=== PATIENT | male | born 1950 | race Caucasian/White ===

== ENCOUNTER → 2019-12-26 14:07 | Outpatient (BNVA) | payer OTHER, SELFPAY | PROVIDERS: Family Provider Family Medicine; Visit Provider Orthopaedic Surgery | DX: M25.552 Pain in left hip (principal) | CPT/HCPCS: 73502 ==

== ENCOUNTER → 2020-09-20 14:59 | Outpatient (BNVA) | payer OTHER, SELFPAY | PROVIDERS: Family Provider Family Medicine; Visit Provider Nurse Practitioner | DX: Z20.828 Contact with and (suspected) exposure to other viral communicable diseases (principal) | CPT/HCPCS: 87635 ==

== ENCOUNTER 2024-09-19 13:55 | Oncology outpatient (recurring) (ONCR) | payer MEDICARE, SELFPAY ==
[2024-09-19 15:31] LABS: Basophils % 0.2 %; Eosinophils % 0.8 %; Hematocrit 27.7 % (37-53); Lymphocytes # 3.3 10^3/uL (0.8-4.8); Lymphocytes % 65.2 %; Mean Corpuscular HGB Conc 32.1 g/dL (30-55); Mean Corpuscular Hemoglobin 35.2 pg (27-33); Mean Corpuscular Volume 109.5 fl (82-101); Monocytes # 0.1 10^3/uL (0.2-0.9); Monocytes % 1.4 %; Neutrophils # 1.63 10^3/uL (1.8-7.7); Neutrophils % 32.2 %; Nucleated Red Blood Cells % 0.4 %; Platelet Count 277 10^3/cmm (157-399); Red Blood Count 2.53 10^6/uL (3.85-5.65); Red Cell Distribution Width 16.7 % (12.1-15.1); White Blood Count 5.06 10^3/uL (3.29-11.43)
[2024-09-19 15:53] LABS: Alanine Aminotransferase 10 U/L (0-41); Albumin Level 4.2 g/dL (3.5-5.2); Alkaline Phosphatase 62 U/L (40-130); Anion Gap 10.6 (5-19); Aspartate Amino Transferase 14 U/L (0-40); Blood Urea Nitrogen 22 mg/dL (8-23); Carbon Dioxide 27 mmol/L (22-29); Chloride 98 mmol/L (98-107); Creatinine Clr Calc Pharmacy 68.9607; Globulin 7.6 g/dL (1.3-4.6); Glucose 116 mg/dL (65-115); Lactate Dehydrogenase 135 U/L (135-225); Osmolality Calculated 276 mOsm/kg (285-295); Potassium 4.6 mmol/L (3.5-5.1); Sodium 131 mmol/L (136-145); Total Bilirubin 0.4 mg/dL (0.15-1.2); Total Protein 11.8 g/dL (6.6-8.7)
[2024-09-19 15:54] LABS: Immunoglobulin IGA < 50 mg/dL (70-400); Immunoglobulin IGM < 25 mg/dL (40-230)
[2024-09-19 16:11] LABS: Immunoglobulin IGG 6470 mg/dL (700-1600)
[2024-09-20 08:48] LABS: PROTEIN, TOTAL 11.8 g/dL (6.1-8.1)
[2024-09-21 05:29] LABS: Creatinine, Random Urine 59 mg/dL (20-320); Protein, Total, Random <4 mg/dL (5-25); Protein/Creatinine Ratio NOTE (0.025-0.148); Protein/Creatinine Ratio NOTE mg/g creat (25-148)
[2024-09-21 13:46] LABS: ABNORMAL PROTEIN BAND 1 2.8 g/dL (NONE DETECTED); ABNORMAL PROTEIN BAND 2 2.4 g/dL (NONE DETECTED); ALBUMIN 4.6 g/dL (3.8-4.8); ALPHA 1 GLOBULIN 0.4 g/dL (0.2-0.3); ALPHA 2 GLOBULIN 0.9 g/dL (0.5-0.9); BETA 1 GLOBULIN 0.5 g/dL (0.4-0.6); BETA 2 GLOBULIN 0.3 g/dL (0.2-0.5); GAMMA GLOBULIN 5.1 g/dL (0.8-1.7)
[2024-09-21 15:54] LABS: KAPPA/LAMBDA LIGHT CHAINS FREE 0.03 (0.26-1.65)
[2024-09-22 13:10] LABS: Albumin,Urine Random 100 %; Alpha-1-Globulins Urine Random 0 %; Alpha-2-Globulins Urine Random 0 %; Beta-Globulin,Urine Random 0 %; Gamma Globulin,Urine Random 0 %
== END 2024-09-30 23:59 | disposition home or self-care (01) ==
PROVIDERS: Family Provider Family Medicine; Visit Provider Internal Medicine Medical Oncology
DX: C44.91 Basal cell carcinoma of skin, unspecified (principal); D53.9 Nutritional anemia, unspecified; D89.2 Hypergammaglobulinemia, unspecified
CPT/HCPCS: 36415; 80053; 82570; 82784; 83615; 83883; 84155; 84156; 84165; 84166; 85025; 86880; 99205

== ENCOUNTER 2024-10-19 07:14 | Outpatient (CLI) | payer MEDICARE, SELFPAY ==
--- NOTE | 2024-10-19 07:22 | USCV_ITS ---
Elfego Tolentino Age: 73 Gender: M : 1950 Exam Date: 10/19/2024 07:44 Ordering Phys: Parminder Taylor MD Technologist: PRAKASH Exam Location: [facility] [place] Indication: murmur, shortness of breath BP: 130 / 70 HR: 71 Rhythm: Sinus Technical Quality: Adequate MEASUREMENTS (Male / Female) Normal Values 2D ECHO LV Diastolic Diameter PLAX 5.0 cm 4.2 - 5.9 / 3.9 - 5.3 cm IVS Diastolic Thickness 0.8 cm 0.6 - 1.0 / 0.6 - 0.9 cm IVS Systolic Thickness 1.5 cm LVPW Diastolic Thickness 1.3 cm 0.6 - 1.0 / 0.6 - 0.9 cm LVPW Systolic Thickness 1.9 cm LVOT Diameter 2.0 cm LV Ejection Fraction 2D Teich 60.0 % LV Ejection Fraction MOD 4C 52.1 % LV Ejection Fraction MOD 2C 58.4 % LV Ejection Fraction 2C AL 59.6 % LA Diameter 3.2 cm RA Systolic Volume 4C AL 65.7 ml RA Systolic Volume 4C MOD 61.7 ml Aorta at Sinotubular Diameter 2.4 cm IVC Diameter 2.1 cm M-MODE LA Ao Ratio MM 1.1 AV Cusp Separation MM 1.6 cm DOPPLER AV Peak Velocity 188.3 cm/s LVOT Peak Velocity 106.0 cm/s AV Area Cont Eq vti 1.8 cm squared AV Area Cont Eq pk 1.8 cm squared MV Peak Velocity 113.0 cm/s MV Area PHT 3.1 cm squared Mitral E to A Ratio 0.8 TR Peak Velocity 170.0 cm/s TR Peak Gradient 11.6 mmHg TR Mean Velocity 135.0 cm/s TR Mean Gradient 8.0 mmHg TR Velocity Time Integral 47.9 cm TV Peak E Velocity 47.0 cm/s PV Peak Velocity 129.0 cm/s RV Ejection Time 0.3 s FINDINGS Left Ventricle Normal left ventricular size and systolic function, EF 55%. No regional wall motion abnormalities. Right Ventricle The right ventricle is normal in size and function. Right Atrium The right atrium is normal in size. Left Atrium The left atrium is normal in size. Mitral Valve Mild mitral annular calcification. Thickened mitral valve. Trace mitral valve regurgitation. Aortic Valve Aortic valve sclerosis. Tricuspid Valve No gross abnormalities noted Pulmonic Valve Pulmonic valve not well visualized. Pericardium Normal pericardium without effusion. Aorta Normal ascending aorta dimension. IVC Normal inferior vena cava. CONCLUSIONS Normal left ventricular size and systolic function, EF 55%. No regional wall motion abnormalities. Mild mitral annular calcification. Thickened mitral valve. Trace mitral valve regurgitation. Features of aortic valve sclerosis. There is no pericardial effusion. Technically somewhat difficult study Dr Chivo Flores MD FACC (Electronically Signed) Final Date: 19 October 2024 21:56 S
== END 2024-10-19 07:15 | disposition home or self-care (01) ==
PROVIDERS: Visit Provider Family Medicine
DX: I34.2 Nonrheumatic mitral (valve) stenosis (principal); R06.02 Shortness of breath; R53.83 Other fatigue
CPT/HCPCS: 93306

== ENCOUNTER 2024-10-30 08:56 | Oncology outpatient (recurring) (ONCR) | payer MEDICARE, SELFPAY ==
--- NOTE | 2024-10-27 09:00 | PETR_ITS ---
PROCEDURE INFORMATION: Exam: PET/CT Skull Base to Mid-thigh Exam date and time: 10/27/2024 9:58 AM Age: 74 years old Clinical indication: Condition or disease; Primary cancer: Multiple myeloma not having achieved remission; Initial oncological staging assessment LABS AND CLINICAL REPORTS: Glucose: 114 mg/dl Treatment strategy for malignancy (PET staging): Restaging (PS) TECHNIQUE: Imaging protocol: Following at least four-hour fasting and following the injection of radiopharmaceutical, low dose CT images were obtained. Then, PET images were obtained. Attenuation corrected images were constructed using the CT scan. Fused images of PET and CT were reviewed. The standardized uptake values (SUV) reported below are maximum values within a region of interest, expressed in gm/ml. Exam includes orbital meatal line to mid-thigh. Radiopharmaceutical: 11.04 mCi F-18 FDG (Fluorodeoxyglucose), IV. Injection site: left ac COMPARISON: CR XR hip LT 2-3V wo/w pel* [id number] 12/26/2019 2:13 PM FINDINGS: Brain: Visualized brain has normal physiologic uptake. Paranasal sinuses: Mild non FDG avid left maxillary sinus mucosal thickening. Salivary glands: Focal FDG uptake at left parotid gland with questionable underlying soft tissue density nodule shows SUV max 7.4 on axial image 399. Teeth: Left maxillary molar lucency with focal FDG uptake showing SUV max 7.5 on axial image 397. Pharynx: No abnormal uptake. Larynx: No abnormal uptake. Lungs, pleura and trachea: No abnormal uptake. Right lower lobe platelike atelectasis versus scarring. Right lower lobe calcified granulomata. Heart: Normal physiologic uptake. Coronary arteries: Moderate coronary artery calcification. Mediastinal space: No abnormal uptake. Liver: No abnormal uptake. Gallbladder and biliary ducts: Apparent curvilinear band of FDG uptake at the gallbladder with SUV max 4.9 at the anterior aspect on axial image 243 that appears to be located adjacent to the gallbladder fundus. No underlying CT abnormality. No calcified gallstones. No biliary ductal dilatation. Pancreas: No abnormal uptake. Spleen: Diffusely increased uptake relative to the liver with SUV main 2.9. No splenomegaly or discrete mass on CT. Calcified granulomata. Adrenal glands: No abnormal uptake. Kidneys and ureters: Normal physiologic uptake. Stomach and bowel: No abnormal uptake. Colonic diverticulosis without findings of diverticulitis. Reproductive: Enlarged prostate measures 5.1 cm in transverse dimension. No abnormal uptake. Vasculature: No abnormal uptake. Moderate systemic atherosclerotic calcification without aortic aneurysm. Lymph nodes: FDG-avid left inguinal lymph node measures 8 mm in the short axis on axial image 162 and shows SUV max 5.1. Calcified right hilar nodes in keeping with sequela of old granulomatous disease. Skeleton: Diffuse FDG uptake throughout the axial and proximal appendicular skeletal system with more focal avid FDG uptake at 2.3 x 1 cm lytic right iliac lesion showing SUV max 15.1 on axial image 206. Degenerative changes along the spine, left shoulder, bilateral sacroiliac joints, hrfu-[id number]-[id number]-right hips, and imaged bilateral knees. Reverse right shoulder arthroplasty. Posterior lower lumbar spine postsurgical change with osseous fusion across L4-L5 grade 1/2 anterolisthesis. Chronic appearing left iliac deformity. Soft tissues: No abnormal uptake in the visualized head, neck, chest, abdomen, pelvis, and extremities. Small fat containing umbilical and bilateral inguinal hernias. METRICS: Mediastinal blood pool: SUV mean 1.8 Liver uptake: SUV mean 2.1 PET/PET skull to thigh INIT [id number] IMPRESSION: 1. Avid FDG uptake at 2.3 cm right iliac lytic lesion compatible with reported multiple myeloma. Less avid diffuse FDG uptake throughout the axial and proximal appendicular skeletal system could represent hyperplasia/posttreatment change, additional sites of myelomatous involvement not excluded. 2. Diffuse splenic FDG uptake may represent splenic repopulation or granulomatous, malignancy thought less likely. 3. FDG avid left inguinal lymph node is nonspecific, may be reactive. 4. Focal left parotid gland FDG uptake with questionable underlying soft tissue density nodule may represent primary neoplasm or abnormal lymph node. 5. Apparent FDG uptake at the gallbladder without underlying CT abnormality. Suspect this represents misregistration artifact with FDG uptake truly corresponding to the colon, although difficult to be entirely certain. Consider right upper quadrant ultrasound. 6. FDG avid left maxillary molar lucency may be inflammatory dental disease. 7. Additional chronic and incidental findings as above.
== END 2024-10-31 23:59 | disposition home or self-care (01) ==
PROVIDERS: Visit Provider Internal Medicine Medical Oncology
DX: C90.00 Multiple myeloma not having achieved remission (principal); Z79.52 Long term (current) use of systemic steroids; Z79.899 Other long term (current) drug therapy; D64.9 Anemia, unspecified; Z79.891 Long term (current) use of opiate analgesic
CPT/HCPCS: 78815; 99214; A9552

== ENCOUNTER → 2024-11-04 15:27 | Outpatient (BNVA) | payer MEDICARE, SELFPAY | PROVIDERS: Visit Provider Registered Nurse Neonatal Intensive Care | DX: R05.8 Other specified cough (principal) | CPT/HCPCS: 87400; 87426 ==

== ENCOUNTER 2024-11-17 11:06 | Inpatient (IN) | payer MEDICARE, SELFPAY ==
[2024-11-17] VITALS (9 sets, daily range): BP systolic 109–188; BP diastolic 67–104; PULSE 61–107; RESP 15–18; TEMP 37.2–38.7; O2SAT 88–99; BMI 25.1
--- NOTE | 2024-11-17 13:05 | XR_ITS ---
WS: [id number] XR chest 1V portable [id number] REASON FOR EXAM: Weakness FINDINGS: No comparison examination. Moderate tortuosity and ectasia of the thoracic aorta. Heart size is within normal limits. Calcified granulomas disease in both hemithoraces. Presumed chronic reticular interstitial lung opacities in both lower lung alejandre. Vaguely defined opacity in the right midlung field associated with multiple calcifications. Irregular aeration in the upper lung alejandre compatible with emphysema and bullous lung disease. Total reverse right shoulder arthroplasty. 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 Mild scoliosis with moderate degenerative spondylosis in the thoracic spine. XR/XR chest 1V portable [id number] IMPRESSION: Probable old inflammatory change in the right lung. No comparison examination. Likely central lobar emphysema and bullous lung disease. No other pleural or pulmonary parenchymal findings that appear acute.
--- NOTE | 2024-11-17 13:06 | ECG_ITS ---
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
--- NOTE | 2024-11-17 13:07 | ED_ITS ---
HPI - Fever 2 General: Chief Complaint: Fever Stated Complaint: body pain, shingles Time Seen by Provider: 11/17/24 13:02 History of Present Illness: 74-year-old man with a history of multip le myeloma and recent diagnosis of shingles who presents emergency room with fever. Has had shingles for about a week. Strangely it is bilateral on his low back. He says he started having a fever last night. On presentation today is 101.6. He says he could not sleep at all last night. He has bodyaches. He has a cough. He does not feel more short of breath than usual. He says Tylenol does not work on his fever. Patient says he is on steroids and valacyclovir. Related Data Home Medications Medication Instructions Recorded Confirmed duloxetine 60 mg capsule,delayed 60 - 120 mg PO DAILY 09/19/24 11/17/24 release quetiapine 300 mg tablet,extended 300 mg PO BEDTIME 09/19/24 11/17/24 release 24 hr clonazepam 2 mg tablet 2 mg PO BID 10/30/24 11/17/24 sulfamethoxazole 800 See Rx Instructions .Route 11/17/24 11/17/24 mg-trimethoprim 160 mg tablet .COMPLEX infection prevention (Bactrim DS) Previous Rx's Medication Instructions Recorded aspirin 81 mg tablet,delayed 81 mg PO DAILY #30 tabs 10/30/24 release (Adult Aspirin Regimen) dexamethasone 4 mg tablet 40 mg (10 x 4 mg) PO .weekly #40 10/30/24 tabs fluconazole 100 mg tablet 100 mg PO DAILY fungal infection 11/06/24 prevention #90 tabs lenalidomide 25 mg capsule 25 mg PO DAILY 21 days #21 caps 11/06/24 lorazepam 1 mg tablet 0.5 - 1 mg (0.5 - 1 x 1 mg) PO Q6H 11/06/24 PRN severe nausea #30 tabs ondansetron HCl 4 mg tablet 4 mg PO Q6H PRN nausea and 11/06/24 vomiting #30 tabs prochlorperazine maleate 10 mg 10 mg PO Q4H PRN mild nausea #30 11/06/24 tablet (Compazine) tabs valacyclovir 500 mg tablet 500 mg PO BID #60 tabs 11/06/24 acyclovir 800 mg tablet 800 mg PO .5x daily 7 days #35 tabs 11/13/24 oxycodone-acetaminophen 5 mg-325 1 tab PO Q6H PRN pain 30 days #60 11/13/24 mg tablet (Percocet) tabs Allergies Allergy/AdvReac Type Severity Reaction Status Date / Time No Known Allergies Allergy Verified 11/04/24 15:14 Review of Systems 2 Narrative: Constitutional symptoms: Negative except as documented in HPI. Skin symptoms: Negative except as documented in HPI. Eye symptoms: Negative except as documented in HPI. ENMT symptoms: Negative except as documented in HPI. Respiratory symptoms: Negative except as documented in HPI. Cardiovascular symptoms: Negative except as documented in HPI. Gastrointestinal symptoms: Negative except as documented in HPI. Genitourinary symptoms: Negative except as documented in HPI. Musculoskeletal symptoms: Negative except as documented in HPI. Neurologic symptoms: Negative except as documented in HPI. Psychiatric symptoms: Negative except as documented in HPI. Endocrine symptoms: Negative except as documented in HPI. PFSH ED 2 PFSH: Social History Smoking and tobacco/nicotine status: former use of tobacco/nicotine Alcohol intake: never Substance/Drug Use: never Physical Exam 2 Narrative: EXAM NARRATIVE: General: Alert, no acute distress. Skin: Warm, dry. Crusted lesions on the low back extending bilaterally. Head: Normocephalic, atraumatic. Neck: Supple, trachea midline. Eye: Extraocular movements are intact. Ears, nose, mouth and throat: mucosa moist. Cardiovascular: Regular, Normal peripheral perfusion. Respiratory: Lungs are clear to auscultation, respirations are non-labored, breath sounds are equal, Symmetrical chest wall expansion. Gastrointestinal: Soft, Nontender, Non distended Musculoskeletal: Normal ROM, no deformity. Neurological: Alert and oriented, No focal neurological deficit observed. Psychiatric: Cooperative, appropriate mood & affect. Course 2 Vital Signs: Vital signs: Vital Signs Temperature 101.6 F H 11/17/24 12:06 Pulse Rate 93 11/17/24 16:52 Respiratory Rate 17 11/17/24 12:06 Blood Pressure 132/75 11/17/24 16:52 Pulse Oximetry 94 11/17/24 16:52 Oxygen Delivery Me thod Room Air 11/17/24 12:06 MDM - Fever Medical Decision Making Medical decision making: Differential diagnosis for patient presenting with generalized weakness/malaise including but not limited to and based on the above HPI, review of systems and physical exam: Sepsis. Dehydration. Renal failure. Electrolyte abnormalities. Anemia. Congestive heart failure. Hypotension. Coronary syndrome. Hepatitis. Cirrhosis. Infections such as pneumonia, urinary tract infection, [place] illness, Cellulitis, Viral infections including influenza and Covid-19. Workup: labwork and lab/exam driven imaging ordered to evaluate, rule in and rule out above pathologies. EKG: Time 1307. Rate 100. Sinus tachycardia, No ST-T changes, no ectopy, normal MO & QRS intervals, This was reviewed and interpreted by myself the ER physician at 1310 Chest x-ray: Infiltrate in the right lung. CT ordered to better evaluate. No previous chest x-ray for comparison. This was reviewed and interpreted by myself the emergency room physician. I also reviewed the radiology report. CT of the chest without contrast: Multifocal pneumonia in the right chest. This was reviewed and interpreted by myself the emergency room physician. I also reviewed the radiology report. Lab Review: Laboratory results were reviewed and interpreted by myself the emergency room physician. No leukocytosis. Slightly worsening anemia from a few months back. Patient is COVID-positive today. However he was positive for COVID over 2 weeks ago. I believe this is a secondary pneumonia that he has today. I reviewed the patient's medical record. Reexamination: Patient has remained fairly stable. He is not requiring any oxygen at this time. Heart rate is improved with fluids. He is requesting admission. He is a cancer patient and I think he is developed a fairly serious secondary pneumonia after COVID. Dr. Vasquez has seen the patient and she agrees. Consultation: I spoke with Dr. Vasquez with the hospital service who agrees to admission. Assessment and plan: Pneumonia Fever Multiple myeloma Shingles Immunocompromise patient ?IV Levaquin, IV fluids. -I discussed the patient with the hospitalist on-call who is admitting the patient. - Discussed findings and plan with patient. Answered any questions. - All laboratory values were reviewed and interpreted personally by myself, the ER physician - All imaging was reviewed and interpreted personally by myself, the ER physician. - Evaluation and treatment of this problem were appropriate in the emergency setting Lab Data 11/17/24 13:45 11/17/24 13:45 Radiology Impressions Chest X-Ray 11/17/24 13:05 IMPRESSION: Probable old inflammatory change in the right lung. No comparison examination. Likely central lobar emphysema and bullous lung disease. No other pleural or pulmonary parenchymal findings that appear acute. Chest CT 11/17/24 15:04 IMPRESSION: Findings compatible with multifocal pneumonia within the right lung. Recommend imaging follow-up after clinical treatment to document resolution. Laboratory Results WBC 5.08 10^3/uL (3.29-11.43) 11/17/24 13:45 RBC 2.08 10^6/uL (3.85-5.65) L 11/17/24 13:45 Hgb 7.40 g/dL (11.27-16.99) L 11/17/24 13:45 Hct 23.1 % (37-53) L 11/17/24 13:45 MCV 111.1 fl (82-101) H 11/17/24 13:45 MCH 35.6 pg (27-33) H 11/17/24 13:45 MCHC 32.0 g/dL (30-55) 11/17/24 13:45 RDW 20.9 % (12.1-15.1) H 11/17/24 13:45 Plt Count 209 10^3/cmm (157-399) 11/17/24 13:45 MPV 9.4 fL (7.4-10.4) 11/17/24 13:45 Neut % (Auto) 71.2 % 11/17/24 13:45 Lymph % (Auto) 26.6 % 11/17/24 13:45 [place] % (Auto) 0.6 % 11/17/24 13:45 Eos % (Auto) 0.8 % 11/17/24 13:45 Baso % (Auto) 0.0 % 11/17/24 13:45 Neut # (Auto) 3.62 10^3/uL (1.8-7.7) 11/17/24 13:45 Lymph # (Auto) 1.4 10^3/uL (0.8-4.8) 11/17/24 13:45 [place] # (Auto) 0.0 10^3/uL (0.2-0.9) L 11/17/24 13:45 Eos # (Auto) 0.0 10^3/uL (0.0-0.8) 11/17/24 13:45 Baso # (Auto) 0.0 10^3/uL (0.0-0.1) 11/17/24 13:45 Nucleated RBC % (auto) 0 % 11/17/24 13:45 Nucleated RBCs # 0.0 /100WBC 11/17/24 13:45 Sodium 133 mmol/L (136-145) L 11/17/24 13:45 Potassium 4.0 mmol/L (3.5-5.1) 11/17/24 13:45 Chloride 94 mmol/L (98-107) L 11/17/24 13:45 Carbon Dioxide 31 mmol/L (22-29) H 11/17/24 13:45 Anion Gap 12.0 (5-19) 11/17/24 13:45 BUN 16 mg/dL (8-23) 11/17/24 13:45 Creatinine 0.8 mg/dL (0.7-1.2) 11/17/24 13:45 GFR Calculation Not Reportable 11/17/24 13:45 Glucose 104 mg/dL (65-115) 11/17/24 13:45 Calculated Osmolality 277 mOsm/kg (285-295) L 11/17/24 13:45 Lactic Acid 1.2 mmol/L (0.5-2.2) 11/17/24 13:45 Calcium 8.3 mg/dL (8.5-10.5) L 11/17/24 13:45 Total Bilirubin 0.4 mg/dL (0.15-1.2) 11/17/24 13:45 AST 13 U/L (0-40) 11/17/24 13:45 ALT 28 U/L (0-41) 11/17/24 13:45 Alkaline Phosphatase 56 U/L (40-130) 11/17/24 13:45 Troponin T Baseline 24 ng/L (0-15) H 11/17/24 13:45 Troponin T 120 Minute 24.16 ng/L (0-15) H 11/17/24 15:52 Delta Troponin T 0.16 ABS# (0-10) 11/17/24 15:52 C-Reactive Protein 214.0 mg/L (0.0-4.9) H 11/17/24 13:45 Total Protein 8.3 g/dL (6.6-8.7) 11/17/24 13:45 Albumin 3.2 g/dL (3.5-5.2) L 11/17/24 13:45 Globulin 5.1 g/dL (1.3-4.6) H 11/17/24 13:45 Procalcitonin 0.31 ng/mL (0-0.5) 11/17/24 13:45 Urine Color Yellow (Yellow) 11/17/24 15: Urine Appearance Clear (CLEAR) 11/17/24 15: Urine pH 8.5 (5-7) A 11/17/24 15: Ur Specific [place] 1.014 (1.005-1.030) 11/17/24 15: Urine Protein 1+ (Negative) A 11/17/24 15: Urine Glucose (UA) Negative (Normal) 11/17/24 15: Urine Ketones Negative (Negative) 11/17/24: Urine Blood Negative (Negative) 11/17/24 15: Urine Nitrate Negative (Negative) 11/17/24 15: Urine Bilirubin Negative (Negative) 11/17/24 15: Urine Urobilinogen 1.0 mg/dL (Negative) 11/17/24 15: Ur Leukocyte Esterase Negative (Negative) 11/17/24 15: Urine RBC 6-10 /hpf (0-2) 11/17/24 15: Urine WBC 0-5 /hpf (0-5) 11/17/24 15: Ur Squamous Epith Cells 0-5 /hpf (0-5) 11/17/24 15: Amorphous Sediment Not Reportable 11/17/24 15: Urine Bacteria None seen /hpf (NONE) 11/17/24 15: Hyaline Casts 0-4 /lpf H 11/17/24 15:31 Adenovirus (PCR) Not detected (NOT DETECT) 11/17/24 13:57 C. pneumoniae DNA (PCR) Not detected (NOT DETECT) 11/17/24 13:57 Coronavirus 229E (PCR) Not detected (NOT DETECT) 11/17/24 13:57 Human Metapneumovir PCR Not detected (NOT DETECT) 11/17/24 13:57 Influenza A (H1) PCR Not detected (NOT DETECT) 11/17/24 13:57 Influ A (H1/09) PCR Not detected (NOT DETECT) 11/17/24 13:57 Influenza A (H3) PCR Not detected (NOT DETECT) 11/17/24 13:57 Influenza Type A (PCR) Not detected (NOT DETECT) 11/17/24 13:57 Influenza Type B (PCR) Not detected (NOT DETECT) 11/17/24 13:57 M. pneumoniae (PCR) Not detected (NOT DETECT) 11/17/24 13:57 Parainfluenza 1 (PCR) Not detected (NOT DETECT) 11/17/24 13:57 Parainfluenza 2 (PCR) Not detected (NOT DETECT) 11/17/24 13:57 Parainfluenza 3 (PCR) Not detected (NOT DETECT) 11/17/24 13:57 Parainfluenza 4 (PCR) Not detected (NOT DETECT) 11/17/24 13:57 RSV Type A (PCR) Not detected (NOT DETECT) 11/17/24 13:57 RSV Type B (PCR) Not detected (NOT DETECT) 11/17/24 13:57 Entero/Rhino (PCR) Not detected (NOT DETECT) 11/17/24 13:57 SARS-CoV-2 (PCR) Detected (NOT DETECT) A 11/17/24 13:57 All radiology interpretation(s) finalized by discharge Discharge Plan Discharge Condition: Stable Prescriptions: No Action duloxetine 60 mg capsule,delayed release(DR/EC) 60 - 120 mg PO DAILY quetiapine 300 mg tablet extended release 24 hr 300 mg PO BEDTIME clonazepam 2 mg tablet 2 mg PO BID dexamethasone 4 mg tablet 40 mg PO .weekly Qty: 40 3RF Rx Instructions: Mondays aspirin [Adult Aspirin Regimen] 81 mg tablet,delayed release (DR/EC) 81 mg PO DAILY Qty: 30 3RF lenalidomide 25 mg capsule 25 mg PO DAILY 21 Days Qty: 21 0RF Rx Instructions: swallow whole with glass of water; do not open, crush, chew , break, or dissolve [id number] valacyclovir 500 mg tablet 500 mg PO BID Qty: 60 5RF Rx Instructions: Continue 3 months post treatment for prevention of viral infection prochlorperazine maleate [Compazine] 10 mg tablet 10 mg PO Q4H PRN (Reason: mild nausea) Qty: 30 3RF ondansetron HCl 4 mg tablet 4 mg PO Q6H PRN (Reason: nausea and vomiting) Qty: 30 3RF lorazepam 1 mg tablet 0.5 - 1 mg PO Q6H PRN (Reason: severe nausea) Qty: 30 3RF fluconazole 100 mg tablet 100 mg PO DAILY Qty: 90 2RF oxycodone-acetaminophen [Percocet] 5-325 mg tablet 1 tab PO Q6H PRN (Reason: pain) 30 Days Qty: 60 0RF acyclovir 800 mg tablet 800 mg PO .5x daily 7 Days Qty: 35 0RF Rx Instructions: while awake; give 5 doses in 24 hours sulfamethoxazole-trimethoprim [Bactrim DS] 800-160 mg tablet See Rx Instructions .ROUTE .COMPLEX Rx Instructions: Take 1 tablet by mouth on Wednesday, Wednesday, and Wednesday. Coding Level of Care Code ED Professor Of Astronomy for Clarisse Lucas
--- NOTE | 2024-11-17 13:47 | PC.PHAR ---
Pt has several nausea medications but states he is continually nauseated. No councelling given to patient in room.
[2024-11-17] MEDS: ondansetron 2 mg/ML SDV 2 mL 4 MG IVP (13:48)
[2024-11-17] MEDS: acetaminophen 1,000 MG/100 ML PIGGYBACK 400 MG IV (13:50)
[2024-11-17] MEDS: sodium chloride 0.9% 1,000 ML 999 ML IV ×2 (13:51→16:48)
[2024-11-17 13:56] LABS: Eosinophils % 0.8 %; Hematocrit 23.1 % (37-53); Lymphocytes # 1.4 10^3/uL (0.8-4.8); Lymphocytes % 26.6 %; Mean Corpuscular Hemoglobin 35.6 pg (27-33); Mean Corpuscular Volume 111.1 fl (82-101); Mean Platelet Volume 9.4 fL (7.4-10.4); Monocytes % 0.6 %; Neutrophils # 3.62 10^3/uL (1.8-7.7); Neutrophils % 71.2 %; Nucleated Red Blood Cells % 0 %; Platelet Count 209 10^3/cmm (157-399); Red Blood Count 2.08 10^6/uL (3.85-5.65); Red Cell Distribution Width 20.9 % (12.1-15.1); White Blood Count 5.08 10^3/uL (3.29-11.43)
[2024-11-17 14:13] LABS: Troponin(5th) Baseline 24 ng/L (0-15)
[2024-11-17 14:14] LABS: Lactic Sepsis W/Reflex 1.2 mmol/L (0.5-2.2)
[2024-11-17 14:37] LABS: Alanine Aminotransferase 28 U/L (0-41); Albumin Level 3.2 g/dL (3.5-5.2); Alkaline Phosphatase 56 U/L (40-130); Aspartate Amino Transferase 13 U/L (0-40); Blood Urea Nitrogen 16 mg/dL (8-23); Calcium 8.3 mg/dL (8.5-10.5); Carbon Dioxide 31 mmol/L (22-29); Chloride 94 mmol/L (98-107); Creatinine Clr Calc Pharmacy 86.4876; Globulin 5.1 g/dL (1.3-4.6); Glucose 104 mg/dL (65-115); Osmolality Calculated 277 mOsm/kg (285-295); Sodium 133 mmol/L (136-145); Total Bilirubin 0.4 mg/dL (0.15-1.2); Total Protein 8.3 g/dL (6.6-8.7)
[2024-11-17 14:43] LABS: Procalcitonin 0.31 ng/mL (0-0.5)
--- NOTE | 2024-11-17 15:04 | CTR_ITS ---
PROCEDURE INFORMATION: Exam: CT Chest Without Contrast; Diagnostic Exam date and time: 11/17/2024 4:20 PM Age: 74 years old Clinical indication: Abnormal findings; Abnormal radiologic exam of lung or chest; Additional info: Abnormal chest xray TECHNIQUE: Imaging protocol: Diagnostic computed tomography of the chest without contrast. Radiation optimization: All CT scans at this facility use at least one of these dose optimization techniques: automated exposure control; mA and/or kV adjustment per patient size (includes targeted exams where dose is matched to clinical indication); or iterative reconstruction. COMPARISON: PT PET skull to thigh INIT [id number] 10/27/2024 9:58 AM RADIATION DOSE METRICS: Total DLP (mGy-cm): 606.34 FINDINGS: Trachea: The central airways are patent. Lungs: Patchy consolidative and ground-glass opacities in the right upper, right middle, and right lower lobes, new from 10/27/2024. Similar platelike atelectasis/scarring in the right lower lobe. Calcified granuloma medially in the right lower lobe. Mild atelectasis in the left lung base. The left lung is otherwise clear. Pleural spaces: Unremarkable. No pneumothorax. No pleural effusion. Heart: Mild mitral calcifications. Coronary arteries: Moderate coronary artery calcifications. Lymph nodes: Calcified right hilar lymph nodes from prior granulomatous disease. No lymphadenopathy by size criteria. Vasculature: Mild atherosclerotic aortic calcifications. No aortic aneurysm. Liver: Subcentimeter hypodensity in the right hepatic lobe is too small to characterize but likely represents a cyst. Calcified splenic granulomas. Bones/joints: Severe degenerative changes of the left glenohumeral joint. Multilevel degenerative changes of the visualized spine. No acute or aggressive osseous lesion. Partially imaged right reverse shoulder arthroplasty. Soft tissues: Unremarkable. CT/CT chest wo con [id number] IMPRESSION: Findings compatible with multifocal pneumonia within the right lung. Recommend imaging follow-up after clinical treatment to document resolution.
--- NOTE | 2024-11-17 15:06 | ECG_ITS ---
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
[2024-11-17 15:57] LABS: Adenovirus Not Detected (NOT DETECT); Chlamydia Pneumoniae Not Detected (NOT DETECT); Coronavirus 229E,HKU1,NL63,OC4 Not Detected (NOT DETECT); Human Metapneumovirus Not Detected (NOT DETECT); Human Rhinovirus/Enterovirus Not Detected (NOT DETECT); Influenza A Not Detected (NOT DETECT); Influenza A H1 Not Detected (NOT DETECT); Influenza A H1-2009 Not Detected (NOT DETECT); Influenza A H3 Not Detected (NOT DETECT); Influenza B Not Detected (NOT DETECT); Mycoplasma Pneumoniae Not Detected (NOT DETECT); Parainfluenza Virus Type 1 Not Detected (NOT DETECT); Parainfluenza Virus Type 2 Not Detected (NOT DETECT); Parainfluenza Virus Type 3 Not Detected (NOT DETECT); Parainfluenza Virus Type 4 Not Detected (NOT DETECT); Respiratory Syncytial Virus A Not Detected (NOT DETECT); Respiratory Syncytial Virus B Not Detected (NOT DETECT)
[2024-11-17 16:00] LABS: SARS-COV-2 Detected (NOT DETECT)
[2024-11-17 16:07] LABS: Bilirubin Urine Negative (Negative); Blood Urine Negative (Negative); Glucose Urine UA Negative (Normal); Ketones Urine Negative (Negative); Leukocyte Esterase Urine Negative (Negative); Nitrate Urine Negative (Negative); Protein Urine 1+ (Negative); Specific Gravity, Urine 1.014 (1.005-1.030); Urine Appearance Clear (CLEAR); Urine Color Yellow (Yellow); pH Urine 8.5 (5-7)
[2024-11-17 16:12] LABS: Bacteria Urine None Seen /hpf; Hyaline Casts Urine 0-4 /lpf; Squamous Epithelial Cell Urine 0-5 /hpf (0-5); WBC Urine 0-5 /hpf (0-5)
[2024-11-17 16:21] LABS: Troponin 5 2HR 24.16 ng/L (0-15); Troponin 5 2HR Delta 0.16 ABS# (0-10)
--- NOTE | 2024-11-17 16:59 | P.HP_ITS ---
Providers/Chief Complaint 2 Chief Complaint: body pain, shingles History of Present Illness Elfego Tolentino is a 74 year old male states for multiple myeloma,, chronic anemia, recent shingles, severe nausea, on lorazepam at home who presented to the hospital today with complaint of fever that started around 5 PM and 2 days ago he had a shingles breakout on his back. He feels fatigued having green phlegm. He states he finished a Z-Jin and steroids 4 days ago that was given to him by his primary care doctor. He is also on daily steroids at home as per oncology. He sees Dr. Ramsay. He says his fever is not breaking and that is what prompted him to the ER. He feels somewhat short of breath and states this cannot go on longer and I need help. He would like to be DNR/DNI. He states he has stage IV cancer. Does not have any living family. Stephane Ford is his neighbor who he wants to point at his DPOA. He would like to sign paperwork if possible. Does have green sputum. Denies any diarrhea constipation abdominal pain chest pain at this time. Medications/Allergies Home Medications Medication Instructions Recorded Confirmed Last Taken Type duloxetine 60 mg capsule,delayed 60 - 120 mg PO DAILY 09/19/24 11/17/24 11/16/24 History release quetiapine 300 mg tablet,extended 300 mg PO BEDTIME 09/19/24 11/17/24 11/15/24 History release 24 hr aspirin 81 mg tablet,delayed 81 mg PO DAILY #30 tabs 10/30/24 11/17/24 11/16/24 Rx release (Adult Aspirin Regimen) clonazepam 2 mg tablet 2 mg PO BID 10/30/24 11/17/24 11/17/24 History dexamethasone 4 mg tablet 40 mg (10 x 4 mg) PO .weekly #40 10/30/24 11/17/24 11/13/24 Rx tabs fluconazole 100 mg tablet 100 mg PO DAILY fungal infection 11/06/24 11/17/24 11/16/24 Rx prevention #90 tabs lenalidomide 25 mg capsule 25 mg PO DAILY 21 days #21 caps 11/06/24 11/17/24 11/16/24 Rx lorazepam 1 mg tablet 0.5 - 1 mg (0.5 - 1 x 1 mg) PO Q6H 11/06/24 11/17/24 Unknown Rx PRN severe nausea #30 tabs ondansetron HCl 4 mg tablet 4 mg PO Q6H PRN nausea and 11/06/24 11/17/24 Unknown Rx vomiting #30 tabs prochlorperazine maleate 10 mg 10 mg PO Q4H PRN mild nausea #30 11/06/24 11/17/24 Unknown Rx tablet (Compazine) tabs valacyclovir 500 mg tablet 500 mg PO BID #60 tabs 11/06/24 11/17/24 11/16/24 Rx acyclovir 800 mg tablet 800 mg PO .5x daily 7 days #35 tabs 11/13/24 11/17/24 11/16/24 Rx oxycodone-acetaminophen 5 mg-325 1 tab PO Q6H PRN pain 30 days #60 11/13/24 11/17/24 Unknown Rx mg tablet (Percocet) tabs sulfamethoxazole 800 See Rx Instructions .Route 11/17/24 11/17/24 11/15/24 History mg-trimethoprim 160 mg tablet .COMPLEX infection prevention (Bactrim DS) Allergies Allergy/AdvReac Type Severity Reaction Status Date / Time No Known Allergies Allergy Verified 11/04/24 15:14 PFSH Acute 2 PFSH: Social History Smoking and tobacco/nicotine status: former use of tobacco/nicotine Alcohol intake: never Substance/Drug Use: never Vitals/I&O/Wt Last Vital Signs Temp 101.6 F H 11/17/24 12:06 Pulse 93 11/17/24 16:52 Resp 17 11/17/24 12:06 BP 132/75 11/17/24 16:52 Pulse Ox 94 11/17/24 16:52 O2 Del Method Room Air 11/17/24 12:06 11/17/24 11/17/24 11/17/24 06:59 14:59 22:59 Intake Total 1100 / 1100 Balance 1100 / 1100 Weight last 48 hrs Weight 81.647 kg Physical Exam 2 Narrative: General: Alert oriented x3, patient seen laying in bed. Appeared ill. HEENT: Normocephalic, atraumatic, EOMI, breathing comfortably on 2 L nasal cannula. Cardio: Regular rate rhythm, normal S1-S2, Respiratory: Good bilateral air entry, no wheezes no rhonchi appreciated GI: Abdomen soft, nontender, nondistended, bowel sounds + Crusted over lesions shingles present in lumbar dermatome area. No active draining lesions at this time. Extremities: No edema bilateral lower extremities Data 11/18/24 03:06 11/18/24 03:06 Micro: Microbiology 11/17/24 13:48 Blood Culture - Preliminary Blood SPECIMEN COLLECTED 11/17/24 13:45 Blood Culture - Preliminary Blood SPECIMEN COLLECTED A&P Assessment and plan (1) Sinusitis: Qualifiers: Sinusitis location: maxillary Chronicity: acute Recurrence: non- recurrent Qualified Code(s): J01.00 - Acute maxillary sinusitis, unspecified (2) Macrocytic anemia: (3) Multiple myeloma without remission: (4) Suspected COVID-19 virus infection: (5) Multifocal pneumonia: (6) Goals of care, counseling/discussion: Plan #Multifocal pneumonia right side #Shortness of breath #COVID-positive #Chronic anemia #Hypertension #Severe nausea #Recent shingles #Stage IV multiple myeloma #Chronic steroid use ? Patient would like to be DNR/DNI. He would like done walker his able to be his DPOA. Would like to sign paperwork today. ? Has been sick for a few weeks. However went to PCP and finished a Z-Jin and steroids. Says he is now having green phlegm and does not feel well. He is on 2 L nasal cannula at this time. ? Is positive for COVID in the ER. CT chest shows multifocal pneumonia ? We will be admitting for antibiotics at this time ? Check sputum culture Gram stain Check blood cultures Wean off oxygen as able Placed on Solu-Medrol 40 IV twice daily ? Start Zosyn, start vancomycin ? Continue aspirin, lorazepam, oxycodone, quetiapine, valacyclovir ? Check iron studies ? Hemoglobin not far from baseline. Baseline 8.6. Follow-up with Dr. Escobar as an outpatient. DNR/DNI DVT prophylaxis: SCDs. Attestations 2 Medical Necessity Statement*: Greater than 2 midnight stay for management of pneumonia. Diagnoses Acute non-recurrent maxillary sinusitis J01.00 Sinusitis location: maxillary Chronicity: acute Recurrence: non-recurrent Macrocytic anemia D53.9 Multiple myeloma without remission C90.00 Suspected COVID-19 virus infection Z20.822 Multifocal pneumonia J18.9 Goals of care, counseling/discussion Z71.89
[2024-11-17] MEDS: morphine 4 mg/mL SDV 1 mL 2 MG IVP (18:07)
[2024-11-17] MEDS: methylPREDNISolone sod succ 40 mg/mL INJ IVP (18:10)
[2024-11-17] MEDS: levofloxacin-dextrose 5 % 750 MG/150 ML PREMIX 100 MG IV (18:13)
[2024-11-17] MEDS: sodium chloride 0.9% 1,000 ML 125 ML IV (18:17)
[2024-11-17] MEDS: vancomycin 1,500 MG/300 ML PIGGYBACK 200 MG IV (19:06)
--- NOTE | 2024-11-17 19:06 | ECG_ITS ---
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
[2024-11-17 21:12] LABS: Troponin 5 6HR 20.29 ng/L (0-15)
[2024-11-17 21:14] LABS: Lactic Sepsis W/Reflex 0.7 mmol/L (0.5-2.2); Troponin 5 6HR Delta -3.71 ng/L (0-12)
[2024-11-17] MEDS: LORazepam 1 mg Tablet PO (21:20)
[2024-11-17] MEDS: quetiapine XR (24HR) 300 mg Tablet PO (21:20)
[2024-11-17] MEDS: valACYclovir 1,000 mg Tablet 500 MG PO (21:20)
[2024-11-17] MEDS: ipratropium-albuterol 3 mL Neb INHALATION (21:20)
[2024-11-17] MEDS: piperacillin-tazobactam 3.375 GM in sodium chloride 0.9% (plus) 50 ML IV (21:20)
[2024-11-18] VITALS (16 sets, daily range): BP systolic 120–169; BP diastolic 71–89; PULSE 80–106; RESP 14–20; TEMP 36.4–36.7; O2SAT 89–97
[2024-11-18] MEDS: acetaminophen 325 mg Tablet 650 MG PO ×4 (00:14→20:32)
[2024-11-18] MEDS: sodium chloride 0.9% 1,000 ML 125 ML IV ×2 (01:20→13:52)
[2024-11-18 03:39] LABS: Hematocrit 21.3 % (37-53); Lymphocytes # 0.5 10^3/uL (0.8-4.8); Lymphocytes % 13.1 %; Mean Corpuscular Hemoglobin 35.9 pg (27-33); Mean Corpuscular Volume 115.8 fl (82-101); Mean Platelet Volume 9.3 fL (7.4-10.4); Monocytes % 0.3 %; Neutrophils # 3.16 10^3/uL (1.8-7.7); Neutrophils % 86.1 %; Nucleated Red Blood Cells % 0 %; Platelet Count 158 10^3/cmm (157-399); Red Blood Count 1.84 10^6/uL (3.85-5.65); Red Cell Distribution Width 20.6 % (12.1-15.1); White Blood Count 3.67 10^3/uL (3.29-11.43)
[2024-11-18 04:00] LABS: Alanine Aminotransferase 24 U/L (0-41); Albumin Level 2.8 g/dL (3.5-5.2); Alkaline Phosphatase 55 U/L (40-130); Anion Gap 13.9 (5-19); Aspartate Amino Transferase 11 U/L (0-40); Blood Urea Nitrogen 19 mg/dL (8-23); Calcium 8.6 mg/dL (8.5-10.5); Carbon Dioxide 24 mmol/L (22-29); Chloride 101 mmol/L (98-107); Creatinine Clr Calc Pharmacy 86.4876; Globulin 5.2 g/dL (1.3-4.6); Glucose 203 mg/dL (65-115); Magnesium 1.9 mg/dL (1.7-2.3); Osmolality Calculated 288 mOsm/kg (285-295); Potassium 3.9 mmol/L (3.5-5.1); Sodium 135 mmol/L (136-145); Total Bilirubin 0.2 mg/dL (0.15-1.2)
[2024-11-18 04:26] LABS: Add RBC Morph Yes; RBC Morph Comp No; Slide Review Slide Review Perform
[2024-11-18 04:27] LABS: Anisocytosis 1+; Hypochromasia 2+
[2024-11-18] MEDS: vancomycin 1,250 MG/250 ML PIGGYBACK 166.67 MG IV (05:11)
[2024-11-18] MEDS: piperacillin-tazobactam 3.375 GM in sodium chloride 0.9% (plus) 50 ML IV ×3 (05:11→20:33)
[2024-11-18] MEDS: methylPREDNISolone sod succ 40 mg/mL INJ IVP ×2 (05:12→17:37)
--- NOTE | 2024-11-18 07:18 | PHA.VACGOAL ---
Vancomycin Goal - Goal Vancomycin Goal:: 10-15 mg/L Vancomycin Indication:: Other - Therapy Current therapy:: Pip/Tazo Day of therpy:: Day []of [] . Actual body weight (kg): 180 lb 4.8 oz - Data Labs: WBC 3.67 10^3/uL (3.29-11.43) 11/18/24 03:06 RBC 1.84 10^6/uL (3.85-5.65) L 11/18/24 03:06 Hgb 6.60 g/dL (11.27-16.99) L 11/18/24 03:06 Hct 21.3 % (37-53) L 11/18/24 03:06 MCV 115.8 fl (82-101) H 11/18/24 03:06 MCH 35.9 pg (27-33) H 11/18/24 03:06 MCHC 31.0 g/dL (30-55) 11/18/24 03:06 RDW 20.6 % (12.1-15.1) H 11/18/24 03:06 Sodium 135 mmol/L (136-145) L 11/18/24 03:06 Potassium 3.9 mmol/L (3.5-5.1) 11/18/24 03:06 Chloride 101 mmol/L (98-107) 11/18/24 03:06 Carbon Dioxide 24 mmol/L (22-29) 11/18/24 03:06 Anion Gap 13.9 (5-19) 11/18/24 03:06 BUN 19 mg/dL (8-23) 11/18/24 03:06 Creatinine 0.7 mg/dL (0.7-1.2) 11/18/24 03:06 GFR Calculation Not Reportable 11/18/24 03:06 Last dialysis session:: N/A Treatment plan:: new consult Regimen:: 1500 MG LOADING DOSE VANC 1250 MG Q12H FOR THE MAINTENANCE DOSE Follow up:: TROUGH 11/19 @1700
[2024-11-18] MEDS: ipratropium-albuterol 3 mL Neb INHALATION ×4 (08:00→20:33)
[2024-11-18] MEDS: fluconazole 100 mg Tablet PO (09:04)
[2024-11-18] MEDS: pantoprazole DR 40 mg Tablet PO (09:04)
[2024-11-18] MEDS: valACYclovir 1,000 mg Tablet 500 MG PO ×2 (09:04→17:36)
[2024-11-18 10:05] LABS: Iron 27 ug/dL (59-158); Percent Saturation 11.7 % (20-50); Total Iron Binding Capacity 229 mcg/dl; Unsaturated Iron Binding 202 ug/dL (112-347)
--- NOTE | 2024-11-18 10:59 | PC.CHAP ---
Pastoral Care Encounter/Spiritual Assessment Type of Contact [] Declined ticket counter visit [] Patient/Family/Request visit [] Outpatient visit [] Follow-up visit [] Physician referral [] Code/Alert [] Routine visit [] Staff referral [] Actively dying [] Patient sleeping [] Family support [] [] Out of room [] Palliative care [] [] Receiving care in room [] Pre-surgical visit [] Trauma [] Long length of stay [] ICU visit [] Other:STOP Relational/Emotional Strength [] Patient feels connected with others/family/visitors/staff [] Distress [] Loneliness/isolation [] Abandonment Spirituality of Patient [] Person of Heidi [] Attends Taoism of their Heidi [] Believes in Prayer [] Reads Bible or Buddhism materials [] There are Spiritual issues to be addressed Meat Boner And Slicer Interventions [] Prayer [] Active listening [] Non-anxious presence [] Spiritual/emotional support [] Crisis/trauma care [] Spiritual counseling [] Bereavement support [] Provided bereavement packet [] Provided Bible/devotional materials [] Provided toy/stuffed animal, coloring book to patient or family member [] Provided Communion [] Anointing/Hana [] Salvation [] Completed spiritual assessment [] Other: Impact on Illness or Injury [] Angry [] Fearful [] Anxious [] Often cries [] Exhaustion [] Unable to work [] Unable to attend yarsani [] Unable to walk/stand [] Unable to read [] Unable to drive [] Unable to eat/drink [] Unable to sleep [] Unable to be with family [] Patient intubated [] Other: Summary Time spent with patient
--- NOTE | 2024-11-18 11:49 | ECG_ITS ---
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
[2024-11-18 11:51] LABS: ABG PCO2 40.6 mmHg (35-45); ABG PH Result 7.44 (7.35-7.45); Arterial Blood Gas Hematocrit 24.2 % (42-52); Base Excess ABG 3.1 mmol/L (-2.0-2.0); Blood Gas Allen Test Pos; Blood Gas Operator Identificat MONRO; Blood Gas Sample Site Radial, left; Blood Gas Sample Type Arterial; Carboxyhemoglobin 1.9 %THgb (0.4-20.1); HCO3 ABG 27.5 mmol/L (22-26); HGB O2 Sat 93.5 % (95-100); Ionized Calcium Level - ABG 1.2 mmol/L (1.1-1.4); Methemoglobin 0.1 % (0.4-1.5); Oxygen Device NC; Oxygen Saturation ABG 95.4; PO2 ABG 71.6 mmHg (80.0-100.0); PO2 FiO2 Ratio Arterial Blood 255; Potassium Level - ABG 3.9 mmol/L (3.5-5.0); Total Hemoglobin 7.9 g/dL (14-18)
[2024-11-18 12:00] LABS: Glucose Point of Care 248 mg/dL (70-110)
--- NOTE | 2024-11-18 12:01 | CTR_ITS ---
PROCEDURE INFORMATION: Exam: CT Head Without Contrast Exam date and time: 11/18/2024 12:10 PM Age: 74 years old Clinical indication: Stroke-like symptoms; Altered mental status/memory loss; Additional info: Fall, head injury TECHNIQUE: Imaging protocol: Computed tomography of the head without contrast. Radiation optimization: All CT scans at this facility use at least one of these dose optimization techniques: automated exposure control; mA and/or kV adjustment per patient size (includes targeted exams where dose is matched to clinical indication); or iterative reconstruction. Other technique: STROKE PROTOCOL was implemented. COMPARISON: PT PET skull to thigh INIT 11386 10/27/2024 9:58 AM RADIATION DOSE METRICS: Total DLP (mGy-cm): 1282.01 FINDINGS: Brain: There is mild small vessel disease. There is no evidence of acute parenchymal hemorrhage, extra-axial collection, or acute infarction. There is no mass effect, midline shift, or downward herniation. Cerebral ventricles: No ventriculomegaly. Paranasal sinuses: Visualized sinuses are unremarkable. No fluid levels. Mastoid air cells: Visualized mastoid air cells are well aerated. Bones: Unremarkable. No acute fracture. Soft tissues: Unremarkable. CT/CT head wo con* 42000 IMPRESSION: Mild small vessel disease. No evidence of acute intracranial process. ASSESSMENT: ASPECTS ([place] Stroke Program Early CT Score) is 10.
--- NOTE | 2024-11-18 13:30 | P.PN_ITS ---
Subjective 2 Subjective: Seen this morning. Patient states he was doing well. Hemoglobin dropped to 6.6 overnight. 1 unit of blood ordered. Delta troponin negative. C-reactive protein to 14 on admission. Procalcitonin 0.41. Iron studies show iron 27, TIBC 229, percent saturation 11.7. Later on code stroke was called for patient not responding. When evaluated patient at bedside. CT head ordered. Negative. Patient woke up set up stated his name date of his neighbor's name address phone number. He stated he was just overly sleepy. He has no focal deficits at this time. Able to respond to commands. EKG reviewed normal sinus rhythm. Blood pressure vital stable. Vitals/I&O/Wt Last Vital Signs Temp 98.0 F 11/18/24 12:00 Pulse 104 H 11/18/24 12:00 Resp 16 11/18/24 12:00 BP 157/87 11/18/24 12:00 Pulse Ox 96 11/18/24 12:00 O2 Del Method Nasal Cannula 11/18/24 12:00 O2 Flow Rate 2 11/18/24 11:59 11/17/24 11/18/24 11/18/24 22:59 06:59 14:59 Intake Total 2550 / 2550 1891.25 / 4441.25 2100.833 / 2100.833 Output Total 950 / 950 1700 / 1700 Balance 2550 / 2550 941.25 / 3491.25 400.833 / 400.833 Weight last 48 hrs Weight 81.783 kg Weight 81.647 kg Physical Exam 2 Narrative: General: Alert oriented x3, patient seen laying in bed. Appeared ill. HEENT: Normocephalic, atraumatic, EOMI, breathing comfortably on 2 L nasal cannula. Cardio: Regular rate rhythm, normal S1-S2, Respiratory: Good bilateral air entry, no wheezes no rhonchi appreciated GI: Abdomen soft, nontender, nondistended, bowel sounds + Crusted over lesions shingles present in lumbar dermatome area. No active draining lesions at this time. Extremities: No edema bilateral lower extremities Data 11/18/24 03:06 11/18/24 03:06 Micro: Microbiology 11/17/24 23:01 Legionella Urinary Antigen - Final Urine,Clean Catch Bacterial Antigens - Final 11/17/24 13:48 Blood Culture - Preliminary Blood SPECIMEN COLLECTED 11/17/24 13:45 Blood Culture - Preliminary Blood SPECIMEN COLLECTED A&P Assessment and plan (1) Sinusitis: Qualifiers: Sinusitis location: maxillary Chronicity: acute Recurrence: non- recurrent Qualified Code(s): J01.00 - Acute maxillary sinusitis, unspecified (2) Macrocytic anemia: (3) Multiple myeloma without remission: (4) Suspected COVID-19 virus infection: (5) Multifocal pneumonia: (6) Goals of care, counseling/discussion: Plan #Multifocal pneumonia right side #Shortness of breath #COVID-positive #Chronic anemia #Hypertension #Severe nausea #Recent shingles #Stage IV multiple myeloma #Chronic steroid use ? Patient would like to be DNR/DNI. He would like done walker his able to be his DPOA. Would like to sign paperwork today. ? Has been sick for a few weeks. However went to PCP and finished a Z-Jin and steroids. Says he is now having green phlegm and does not feel well. He is on 2 L nasal cannula at this time. ? Is positive for COVID in the ER. CT chest shows multifocal pneumonia ? We will be admitting for antibiotics at this time ? Check sputum culture Gram stain Check blood cultures Wean off oxygen as able Placed on Solu-Medrol 40 IV twice daily ? Start Zosyn, start vancomycin ? Continue aspirin, lorazepam, oxycodone, quetiapine, valacyclovir ? Check iron studies ? Hemoglobin not far from baseline. Baseline 8.6. Follow-up with Dr. Escobar as an outpatient. DNR/DNI DVT prophylaxis: SCDs. 09/18/2024 -Code stroke called this morning. Symptoms lasted a few seconds. Basically patient was not responding to command or waking up. I am at bedside. After we noted the patient and got him to sit up he opened his eyes and was talking normally. He was able to state his name date of his neighbor's name date of address phone number. He stated he was sleepy. He said he is awake. Patient awake alert oriented nonfocal. Probably a TIA however clinically seems unlikely at this time. We will continue to monitor patient. Will continue neurochecks every 2 hours. ? Cute on chronic anemia: Hemoglobin 6.6 this morning. 1 unit packed RBC ordered. Labs consistent with iron deficiency anemia. ? Monitor CBC every 12 hours. Will order fecal occult blood test ? Continue vancomycin and Zosyn for multifocal pneumonia given immunocompromised status. ? Continue lorazepam for severe nausea. Dual pseudomonal coverage provided on admission with Levaquin. Fluconazole 100 ordered as his home medication. Apparently pharmacy canceled my order for Levaquin. ? Will reorder today. Patient did get a dose yesterday. ? Check MRSA nares -Continue valacyclovir for continued treatment of recent shingles. ? Continue Solu-Medrol. Patient states subjectively he is starting to feel better. ? May consider discharge in next 24 to 48 hours ? Check PT OT Attestations 2 Medical Necessity Statement*: Greater than 2 midnight stay for management of pneumonia. Diagnoses Acute non-recurrent maxillary sinusitis J01.00 Sinusitis location: maxillary Chronicity: acute Recurrence: non-recurrent Macrocytic anemia D53.9 Multiple myeloma without remission C90.00 Suspected COVID-19 virus infection Z20.822 Multifocal pneumonia J18.9 Goals of care, counseling/discussion Z71.89
[2024-11-18] MEDS: LORazepam 1 mg Tablet PO (13:51)
[2024-11-18] MEDS: levofloxacin-dextrose 5 % 750 MG/150 ML PREMIX 100 MG IV (13:52)
[2024-11-18 14:02] LABS: Estmated Average Glucose 105; Hemoglobin A1C 5.3 % (4.0-6.0)
[2024-11-18] MEDS: vancomycin 1,250 MG/250 ML PIGGYBACK 166.7 MG IV (17:37)
[2024-11-18 17:58] LABS: Vancomycin Trough 8.3 ug/mL (10-15)
[2024-11-18 19:31] LABS: MRSA PCR OZH (swab) NOT DETECTED (Negative)
[2024-11-18] MEDS: quetiapine XR (24HR) 300 mg Tablet PO (20:32)
[2024-11-18] MEDS: CLONazepam 1 mg Tablet 2 MG PO (20:33)
[2024-11-19] VITALS (10 sets, daily range): BP systolic 128–182; BP diastolic 77–100; PULSE 81–122; RESP 18–20; TEMP 36.4–37.3; O2SAT 95–96
[2024-11-19] MEDS: sodium chloride 0.9% 1,000 ML 125 ML IV ×3 (00:31→17:12)
[2024-11-19] MEDS: piperacillin-tazobactam 3.375 GM in sodium chloride 0.9% (plus) 50 ML IV (04:12)
[2024-11-19] MEDS: methylPREDNISolone sod succ 40 mg/mL INJ IVP ×2 (04:12→17:13)
[2024-11-19 04:48] LABS: Hematocrit 24.4 % (37-53); Lymphocytes # 0.6 10^3/uL (0.8-4.8); Lymphocytes % 13.2 %; Mean Corpuscular HGB Conc 31.1 g/dL (30-55); Mean Corpuscular Hemoglobin 33.9 pg (27-33); Mean Corpuscular Volume 108.9 fl (82-101); Mean Platelet Volume 9.4 fL (7.4-10.4); Monocytes % 0.9 %; Neutrophils # 3.87 10^3/uL (1.8-7.7); Neutrophils % 85.5 %; Nucleated Red Blood Cells % 0 %; Platelet Count 173 10^3/cmm (157-399); Red Blood Count 2.24 10^6/uL (3.85-5.65); Red Cell Distribution Width 24.8 % (12.1-15.1); White Blood Count 4.53 10^3/uL (3.29-11.43)
[2024-11-19] MEDS: hyDRALAzine 20 mg/mL INJ 1 mL 10 MG IVP ×3 (05:05→15:33)
[2024-11-19] MEDS: vancomycin 1,250 MG/250 ML PIGGYBACK 166 MG IV (05:07)
[2024-11-19 05:10] LABS: Anion Gap 10.9 (5-19); Blood Urea Nitrogen 19 mg/dL (8-23); Calcium 8.8 mg/dL (8.5-10.5); Carbon Dioxide 22 mmol/L (22-29); Chloride 104 mmol/L (98-107); Glucose 153 mg/dL (65-115); Magnesium 1.9 mg/dL (1.7-2.3); Osmolality Calculated 281 mOsm/kg (285-295); Potassium 3.9 mmol/L (3.5-5.1); Sodium 133 mmol/L (136-145)
[2024-11-19] MEDS: acetaminophen 325 mg Tablet 650 MG PO ×2 (06:32→22:18)
[2024-11-19] MEDS: valACYclovir 1,000 mg Tablet 500 MG PO ×2 (08:58→17:12)
[2024-11-19] MEDS: polyethylene glycol 3350 Pkt 17 gm PO (08:59)
[2024-11-19] MEDS: pantoprazole DR 40 mg Tablet PO (08:59)
[2024-11-19] MEDS: fluconazole 100 mg Tablet PO (08:59)
[2024-11-19] MEDS: CLONazepam 1 mg Tablet 2 MG PO ×2 (08:59→17:12)
[2024-11-19] MEDS: ipratropium-albuterol 3 mL Neb INHALATION (09:08)
[2024-11-19] MEDS: fentaNYL 12 mcg Patch 1 PATCH TRANSDERMA (12:52)
[2024-11-19] MEDS: levofloxacin-dextrose 5 % 750 MG/150 ML PREMIX 100 MG IV (12:56)
--- NOTE | 2024-11-19 15:13 | P.PN_ITS ---
Subjective 2 Subjective: seen today pt sitting up in bed appearing comfortable hb 7.6 this am complains of pain and states his oxycodone does not help and he doesnt want it at all Vitals/I&O/Wt Last Vital Signs Temp 98.4 F 11/19/24 12:00 Pulse 102 H 11/19/24 14:00 Resp 20 H 11/19/24 12:00 BP 167/91 11/19/24 12:00 Pulse Ox 95 11/19/24 12:00 O2 Del Method Room Air 11/19/24 12:00 O2 Flow Rate 2 11/18/24 15:14 11/19/24 11/19/24 11/19/24 06:59 14:59 22:59 Intake Total 793.75 / 3773.750 1200 / 1200 Output Total 900 / 3125 1550 / 1550 Balance -106.25 / 648.750 -350 / -350 Weight last 48 hrs Weight 81.148 kg Weight 81.783 kg Physical Exam 2 Narrative: General: Alert oriented x3, patient seen laying in bed. Appeared ill. HEENT: Normocephalic, atraumatic, EOMI, breathing comfortably on room air Cardio: Regular rate rhythm, normal S1-S2, Respiratory: Good bilateral air entry, no wheezes no rhonchi appreciated GI: Abdomen soft, nontender, nondistended, bowel sounds + Crusted over lesions shingles present in lumbar dermatome area. No active draining lesions at this time. Extremities: No edema bilateral lower extremities Data 11/19/24 04:12 11/19/24 04:12 Micro: Microbiology 11/19/24 08:50 Occult Blood (FIT) - Final Stool Routine Collection 11/17/24 13:48 Blood Culture - Preliminary Blood NEGATIVE TO DATE 11/17/24 13:45 Blood Culture - Preliminary Blood NEGATIVE TO DATE 11/17/24 23:01 Legionella Urinary Antigen - Final Urine,Clean Catch Bacterial Antigens - Final A&P Assessment and plan (1) Sinusitis: Qualifiers: Sinusitis location: maxillary Chronicity: acute Recurrence: non- recurrent Qualified Code(s): J01.00 - Acute maxillary sinusitis, unspecified (2) Macrocytic anemia: (3) Multiple myeloma without remission: (4) Suspected COVID-19 virus infection: (5) Multifocal pneumonia: (6) Goals of care, counseling/discussion: Plan #Multifocal pneumonia right side #Shortness of breath #COVID-positive #Chronic anemia #Hypertension #Severe nausea #Recent shingles #Stage IV multiple myeloma #Chronic steroid use ? Patient would like to be DNR/DNI. He would like done walker his able to be his DPOA. Would like to sign paperwork today. ? Has been sick for a few weeks. However went to PCP and finished a Z-Jin and steroids. Says he is now having green phlegm and does not feel well. He is on 2 L nasal cannula at this time. ? Is positive for COVID in the ER. CT chest shows multifocal pneumonia ? We will be admitting for antibiotics at this time ? Check sputum culture Gram stain Check blood cultures Wean off oxygen as able Placed on Solu-Medrol 40 IV twice daily ? Start Zosyn, start vancomycin ? Continue aspirin, lorazepam, oxycodone, quetiapine, valacyclovir ? Check iron studies ? Hemoglobin not far from baseline. Baseline 8.6. Follow-up with Dr. Escobar as an outpatient. DNR/DNI DVT prophylaxis: SCDs. 11/18/2024 -Code stroke called this morning. Symptoms lasted a few seconds. Basically patient was not responding to command or waking up. I am at bedside. After we noted the patient and got him to sit up he opened his eyes and was talking normally. He was able to state his name date of his neighbor's name date of address phone number. He stated he was sleepy. He said he is awake. Patient awake alert oriented nonfocal. Probably a TIA however clinically seems unlikely at this time. We will continue to monitor patient. Will continue neurochecks every 2 hours. ? Cute on chronic anemia: Hemoglobin 6.6 this morning. 1 unit packed RBC ordered. Labs consistent with iron deficiency anemia. ? Monitor CBC every 12 hours. Will order fecal occult blood test ? Continue vancomycin and Zosyn for multifocal pneumonia given immunocompromised status. ? Continue lorazepam for severe nausea. Dual pseudomonal coverage provided on admission with Levaquin. Fluconazole 100 ordered as his home medication. Apparently pharmacy canceled my order for Levaquin. ? Will reorder today. Patient did get a dose yesterday. ? Check MRSA nares -Continue valacyclovir for continued treatment of recent shingles. ? Continue Solu-Medrol. Patient states subjectively he is starting to feel better. ? May consider discharge in next 24 to 48 hours ? Check PT OT 11/19/2024 -Seen this morning. Patient does not want to take oxycodone any longer as it does not help him. Discussed with him regarding starting a fentanyl patch which she is agreeable to. Patient does have advanced stage IV multiple myeloma and it would be reasonable to provide pain control at this time with fentanyl patch. He has advanced disease. ? Continue valacyclovir total 14 days for treatment of shingles. ? Switch to dexamethasone at discharge. Continue Solu-Medrol at this time ? MRSA nares is negative. Stop vancomycin ? Stop Zosyn as well. May continue Levaquin. ? Continue fluconazole 100 daily. ? May consider discharge in next 24 to 48 hours ? Check PT OT Attestations 2 Medical Necessity Statement*: Greater than 2 midnight stay for management of pneumonia. Diagnoses Acute non-recurrent maxillary sinusitis J01.00 Sinusitis location: maxillary Chronicity: acute Recurrence: non-recurrent Macrocytic anemia D53.9 Multiple myeloma without remission C90.00 Suspected COVID-19 virus infection Z20.822 Multifocal pneumonia J18.9 Goals of care, counseling/discussion Z71.89
[2024-11-19] MEDS: morphine 4 mg/mL SDV 1 mL IVP (15:39)
[2024-11-19 17:52] LABS: Vancomycin Trough 9.8 ug/mL (10-15)
[2024-11-19] MEDS: quetiapine XR (24HR) 300 mg Tablet PO (19:51)
[2024-11-19] MEDS: LORazepam 1 mg Tablet PO (23:48)
[2024-11-20] VITALS (7 sets, daily range): BP systolic 152–182; BP diastolic 80–97; PULSE 85–102; RESP 16–18; TEMP 36.3–36.7; O2SAT 94–96
[2024-11-20] MEDS: sodium chloride 0.9% 1,000 ML 125 ML IV ×2 (00:56→09:36)
[2024-11-20 04:37] LABS: Basophils % 0.3 %; Hematocrit 24.3 % (37-53); Lymphocytes # 0.7 10^3/uL (0.8-4.8); Lymphocytes % 19.1 %; Mean Corpuscular HGB Conc 30.9 g/dL (30-55); Mean Corpuscular Hemoglobin 34.4 pg (27-33); Mean Corpuscular Volume 111.5 fl (82-101); Mean Platelet Volume 9.8 fL (7.4-10.4); Monocytes # 0.1 10^3/uL (0.2-0.9); Monocytes % 1.7 %; Neutrophils % 77.5 %; Nucleated Red Blood Cells % 0 %; Platelet Count 175 10^3/cmm (157-399); Red Blood Count 2.18 10^6/uL (3.85-5.65); White Blood Count 3.61 10^3/uL (3.29-11.43)
[2024-11-20] MEDS: methylPREDNISolone sod succ 40 mg/mL INJ IVP (04:39)
[2024-11-20 05:03] LABS: Anion Gap 13.5 (5-19); Blood Urea Nitrogen 23 mg/dL (8-23); Carbon Dioxide 20 mmol/L (22-29); Chloride 104 mmol/L (98-107); Creatinine Clr Calc Pharmacy 86.2658; Glucose 191 mg/dL (65-115); Osmolality Calculated 287 mOsm/kg (285-295); Potassium 3.5 mmol/L (3.5-5.1); Sodium 134 mmol/L (136-145)
[2024-11-20 05:12] LABS: Add RBC Morph Yes; Anisocytosis 3+; Hypochromasia 1+; RBC Morph Comp No; Slide Review Slide Review Perform
[2024-11-20] MEDS: fluconazole 100 mg Tablet PO (09:30)
[2024-11-20] MEDS: valACYclovir 1,000 mg Tablet 500 MG PO (09:30)
[2024-11-20] MEDS: pantoprazole DR 40 mg Tablet PO (09:30)
[2024-11-20] MEDS: CLONazepam 1 mg Tablet 2 MG PO (09:31)
[2024-11-20] MEDS: acetaminophen 325 mg Tablet 650 MG PO (11:32)
[2024-11-20] MEDS: hyDRALAzine 20 mg/mL INJ 1 mL 10 MG IVP (11:33)
[2024-11-20] MEDS: amlodipine 5 mg Tablet PO (11:33)
[2024-11-20 11:35] LABS: C Reactive Protein 40.1 mg/L (0.0-4.9)
--- NOTE | 2024-11-20 15:56 | PM.DCS ---
Discharge Providers Date of Admission: 11/17/24 16:47 Date of Discharge: November 20, 2024 Attending Provider at Admission: Yesenia Vasquez MD Attending Provider at Discharge: Philly Lechuga MD Diagnoses at Discharge Discharge Diagnosis (1) Sinusitis: Status: Acute Qualifiers: Sinusitis location: maxillary Chronicity: acute Recurrence: non-recurrent Qualified Code(s): J01.00 - Acute maxillary sinusitis, unspecified (2) Macrocytic anemia: Status: Acute (3) Multiple myeloma without remission: Status: Acute (4) Suspected COVID-19 virus infection: Status: Acute (5) Multifocal pneumonia: Status: Acute (6) Goals of care, counseling/discussion: Status: Acute Reason for Visit Reason for Visit: body pain, shingles Hospital Course Hospital Course Overall patient is Mr. Tolentino is a 74-year-old male who has recently been diagnosed with multiple myeloma. Patient states today that he has been experiencing increasing bony pains for the past 3 to 4 years. And he has been increasingly short of breath at least over the past 1 year worsened over the last 6 months. He states he was able to ambulate and perform strenuous tasks such as chopping wood etc. however in the past 6 months he has been unable to do so. He was diagnosed initially with a macrocytic anemia and then referred to see oncology in September 2024. Subsequently he underwent a bone marrow biopsy at [facility]. Bone marrow biopsy on February 12, 2024 revealed a diagnosis of multiple myeloma. PET scan from October 2024 showed right iliac lytic lesion compatible with multiple myeloma. Diffuse FDG uptake throughout the axial and proximal appendicular skeletal. Focal left parotid gland enlargement was seen raising concern for possible neoplasm versus abnormal lymph node. He was started on dexamethasone 40 mg p.o. weekly. Following initiation of steroids, patient states he gained at least 30 pounds of weight and felt poorly overall. He has also been diagnosed with outbreaks of shingles of the back. He does have a history of zoster in the past during times of stress. States since starting steroids he has had recurrent upper respiratory tract infection and was recently also diagnosed with COVID-19 On November 04. He was currently admitted to the hospital for multifocal pneumonia and received treatment with levofloxacin. Patient was planned to be started on Revlimid and Velcade as outpatient, however patient has declined initiation of any chemotherapy/immunotherapy/other cancer treatment. He states that he does not wish to take any chemotherapy and has made peace with the fact that multiple myeloma will be a terminal diagnosis for him. He states he is interested only in quality of life. He wants to live out the rest of his days living with his animals at home and does not wish to make repeated rounds of the hospital. He understands that both multiple myeloma, and its treatment would make him more prone to infections and states that that is not a life he envisions for himself. He states he has a lot of social support with excellent neighbors will bring him food and drive him if needed. He understands all the complications and risks associated with declining therapy. HE wishes to be discharged home to live out his days per his wishes. His only request at this present time is pain management as he states he has been living with incredible pain for the past 4 years. This is certainly reasonable given his diagnosis. With these goals of care extensive discussions today, it appears hospice would be more in keeping with his stated life plans. Referral was sent to home hospice and patient has been accepted by [facility]. He is being discharged today with prescriptions for morphine and fentanyl patch which appears to be currently helping him with pain. Patient is familiar with hospice as he states that his has previously had hospice services and understands that transition to hospice means that his expected life expectancy is only a few months. Pill in pocket approach recommended for any further shingles outbreak. Prescription provided for Valtrex 1 g 3 times daily to be started at the initiation of an episode of shingles, to be taken for 7 days. 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 Bactrim prophylaxis, fluconazole prophylaxis are not needed as patient is not going to be on any cancer treatment. Physical Exam Narrative: General: No acute distress, AO x3 HEENT: PERRLA, pupils bilaterally equal and reactive, pallors not present Chest: Normal vesicular breath sounds, no added sounds, equal good air entry bilaterally CVS: S1-S2 regular, no murmurs, no tachycardia, no gallops, no rubs Abdomen: Soft, nontender, no organomegaly, bowel sounds present Neuro: No focal deficits, no facial deformity, AO x3, power 5/5 in all limbs Discharge Data Studies Completed and Pending Completed Studies During Hospitalization Category Date Time Status CT chest wo con [id number] Stat Cat Scan 11/17/24 15:[address] head wo con* [id number] Stat Cat Scan 11/18/24 12:01 Completed XR chest 1V portable [id number] Stat Exams 11/17/24 13:05 Completed Pending at discharge Category Date Time Status Blood Culture Stat Lab 11/17/24 13:48 Results Sputum Culture and Gram Stain Stat Lab 11/17/24 17:03 Uncollected Radiology Impressions Chest X-Ray 11/17/24 13:05 IMPRESSION: Probable old inflammatory change in the right lung. No comparison examination. Likely central lobar emphysema and bullous lung disease. No other pleural or pulmonary parenchymal findings that appear acute. Chest CT 11/17/24 15:04 IMPRESSION: Findings compatible with multifocal pneumonia within the right lung. Recommend imaging follow-up after clinical treatment to document resolution. Head CT 11/18/24 12:01 IMPRESSION: Mild small vessel disease. No evidence of acute intracranial process. ASSESSMENT: ASPECTS ([place] Stroke Program Early CT Score) is 10. ADDENDUM: 11/18/24 1231 THIS REPORT CONTAINS FINDINGS THAT MAY BE CRITICAL TO PATIENT CARE. The findings were verbally communicated via telephone conference with Yesenia Vasquez at 12:30 PM RADIAL SAW OPERATOR on 11/18/2024. The findings were acknowledged and understood. Laboratory Results WBC 3.61 10^3/uL (3.29-11.43) 11/20/24 03:18 RBC 2.18 10^6/uL (3.85-5.65) L 11/20/24 03:18 Hgb 7.50 g/dL (11.27-16.99) L 11/20/24 03:18 Hct 24.3 % (37-53) L 11/20/24 03:18 MCV 111.5 fl (82-101) H 11/20/24 03:18 MCH 34.4 pg (27-33) H 11/20/24 03:18 MCHC 30.9 g/dL (30-55) 11/20/24 03:18 RDW 25.0 % (12.1-15.1) H 11/20/24 03:18 Plt Count 175 10^3/cmm (157-399) 11/20/24 03:18 MPV 9.8 fL (7.4-10.4) 11/20/24 03:18 Neut % (Auto) 77.5 % 11/20/24 03:18 Lymph % (Auto) 19.1 % 11/20/24 03:18 [place] % (Auto) 1.7 % 11/20/24 03:18 Eos % (Auto) 0.0 % 11/20/24 03:18 Baso % (Auto) 0.3 % 11/20/24 03:18 Neut # (Auto) 2.80 10^3/uL (1.8-7.7) 11/20/24 03:18 Lymph # (Auto) 0.7 10^3/uL (0.8-4.8) L 11/20/24 03:18 [place] # (Auto) 0.1 10^3/uL (0.2-0.9) L 11/20/24 03:18 Eos # (Auto) 0.0 10^3/uL (0.0-0.8) 11/20/24 03:18 Baso # (Auto) 0.0 10^3/uL (0.0-0.1) 11/20/24 03:18 Nucleated RBC % (auto) 0 % 11/20/24 03:18 Nucleated RBCs # 0.0 /100WBC 11/20/24 03:18 Hypochromasia 1+ H 11/20/24 03:18 Anisocytosis 3+ H 11/20/24 03:18 Specimen Type Arterial 11/18/24 11:38 Sample Site Radial, left 11/18/24 11:38 ABG pH 7.44 (7.35-7.45) 11/18/24 11:38 ABG pCO2 40.6 mmHg (35-45) 11/18/24 11:38 ABG pO2 71.6 mmHg (80.0-100.0) L 11/18/24 11:38 ABG PO2/FiO2 Ratio 255 11/18/24 11:38 ABG HCO3 27.5 mmol/L (22-26) H 11/18/24 11:38 ABG O2 Saturation 95.4 11/18/24 11:38 ABG Base Excess 3.1 mmol/L (-2.0-2.0) H 11/18/24 11:38 Nehemias Test Pos 11/18/24 11:38 A-a O2 Gradient 10.0 mmHg (5-10) 11/18/24 11:38 Hematocrit 24.2 % (42-52) L 11/18/24 11:38 Hgb O2 Saturation 93.5 % (95-100) L 11/18/24 11:38 Carboxyhemoglobin 1.9 %THgb (0.4-20.1) 11/18/24 11:38 Methemoglobin 0.1 % (0.4-1.5) L 11/18/24 11:38 Total Hemoglobin 7.9 g/dL (14-18) L 11/18/24 11:38 Sodium 140.0 mmol/L (131-143) 11/18/24 11:38 Potassium 3.9 mmol/L (3.5-5.0) 11/18/24 11:38 Glucose 238.0 mg/dL (70-115) H 11/18/24 11:38 Ionized Calcium 1.2 mmol/L (1.1-1.4) 11/18/24 11:38 O2 Delivery Device Nc 11/18/24 11:38 O2 Liters/Min 2.0 % 11/18/24 11:38 FiO2 28.0 % 11/18/24 11:38 Facilities Maintenance Worker ID [place] 11/18/24 11:38 Sodium 134 mmol/L (136-145) L 11/20/24 03:18 Potassium 3.5 mmol/L (3.5-5.1) 11/20/24 03:18 Chloride 104 mmol/L (98-107) 11/20/24 03:18 Carbon Dioxide 20 mmol/L (22-29) L 11/20/24 03:18 Anion Gap 13.5 (5-19) 11/20/24 03:18 BUN 23 mg/dL (8-23) 11/20/24 03:18 Creatinine 0.7 mg/dL (0.7-1.2) 11/20/24 03:18 GFR Calculation Not Reportable 11/20/24 03:18 Glucose 191 mg/dL (65-115) H 11/20/24 03:18 POC Glucose 248 mg/dL (70-110) H 11/18/24 11:46 Estimat Average Glucose 105 11/18/24 12:00 Hemoglobin A1c 5.3 % (4.0-6.0) 11/18/24 12:00 Calculated Osmolality 287 mOsm/kg (285-295) 11/20/24 03:18 Lactic Acid 0.7 mmol/L (0.5-2.2) 11/17/24 20:28 Calcium 8.0 mg/dL (8.5-10.5) L 11/20/24 03:18 Magnesium 1.9 mg/dL (1.7-2.3) 11/19/24 04:12 Iron 27 ug/dL (59-158) L 11/18/24 03:06 TIBC 229 mcg/dl 11/18/24 03:06 % Saturation 11.7 % (20-50) L 11/18/24 03:06 Unsat Iron Binding 202 ug/dL (112-347) 11/18/24 03:06 Total Bilirubin 0.2 mg/dL (0.15-1.2) 11/18/24 03:06 AST 11 U/L (0-40) 11/18/24 03:06 ALT 24 U/L (0-41) 11/18/24 03:06 Alkaline Phosphatase 55 U/L (40-130) 11/18/24 03:06 Troponin T Baseline 24 ng/L (0-15) H 11/17/24 13:45 Troponin T 120 Minute 24.16 ng/L (0-15) H 11/17/24 15:52 Delta Troponin T 0.16 ABS# (0-10) 11/17/24 15:52 Troponin T Hi Sens 6Hr 20.29 ng/L (0-15) H 11/17/24 20:28 Troponin T Hi Sens 6Hr Delta -3.71 ng/L (0-12) L 11/17/24 20:28 C-Reactive Protein 40.1 mg/L (0.0-4.9) H 11/20/24 03:18 Total Protein 8.0 g/dL (6.6-8.7) 11/18/24 03:06 Albumin 2.8 g/dL (3.5-5.2) L 11/18/24 03:06 Globulin 5.2 g/dL (1.3-4.6) H 11/18/24 03:06 Procalcitonin 0.31 ng/mL (0-0.5) 11/17/24 13:45 Urine Color Yellow (Yellow) 11/17/24 15: Urine Appearance Clear (CLEAR) 11/17/24 15: Urine pH 8.5 (5-7) A 11/17/24 15: Ur Specific [place] 1.014 (1.005-1.030) 11/17/24 15: Urine Protein 1+ (Negative) A 11/17/24 15: Urine Glucose (UA) Negative (Normal) 11/17/24: Urine Ketones Negative (Negative) 11/17/24: Urine Blood Negative (Negative) 11/17/24 15: Urine Nitrate Negative (Negative) 11/17/24: Urine Bilirubin Negative (Negative) 11/17/24: Urine Urobilinogen 1.0 mg/dL (Negative) 11/17/24 15: Ur Leukocyte Esterase Negative (Negative) 11/17/24 15: Urine RBC 6-10 /hpf (0-2) 11/17/24 15: Urine WBC 0-5 /hpf (0-5) 11/17/24 15: Ur Squamous Epith Cells 0-5 /hpf (0-5) 11/17/24 15: Amorphous Sediment Not Reportable 11/17/24 15: Urine Bacteria None seen /hpf (NONE) 11/17/24 15: Hyaline Casts 0-4 /lpf H 11/17/24 15:31 Nasal MRSA (PCR) Not detected (Negative) 11/18/24 18:15 Vancomycin Trough 9.8 ug/mL (10-15) L 11/19/24 17:22 Adenovirus (PCR) Not detected (NOT DETECT) 11/17/24 13:57 C. pneumoniae DNA (PCR) Not detected (NOT DETECT) 11/17/24 13:57 Coronavirus 229E (PCR) Not detected (NOT DETECT) 11/17/24 13:57 Human Metapneumovir PCR Not detected (NOT DETECT) 11/17/24 13:57 Influenza A (H1) PCR Not detected (NOT DETECT) 11/17/24 13:57 Influ A (H1/09) PCR Not detected (NOT DETECT) 11/17/24 13:57 Influenza A (H3) PCR Not detected (NOT DETECT) 11/17/24 13:57 Influenza Type A (PCR) Not detected (NOT DETECT) 11/17/24 13:57 Influenza Type B (PCR) Not detected (NOT DETECT) 11/17/24 13:57 M. pneumoniae (PCR) Not detected (NOT DETECT) 11/17/24 13:57 Parainfluenza 1 (PCR) Not detected (NOT DETECT) 11/17/24 13:57 Parainfluenza 2 (PCR) Not detected (NOT DETECT) 11/17/24 13:57 Parainfluenza 3 (PCR) Not detected (NOT DETECT) 11/17/24 13:57 Parainfluenza 4 (PCR) Not detected (NOT DETECT) 11/17/24 13:57 RSV Type A (PCR) Not detected (NOT DETECT) 11/17/24 13:57 RSV Type B (PCR) Not detected (NOT DETECT) 11/17/24 13:57 Entero/Rhino (PCR) Not detected (NOT DETECT) 11/17/24 13:57 SARS-CoV-2 (PCR) Detected (NOT DETECT) A 11/17/24 13:57 Blood Type A Positive 11/18/24 05:37 Rho(D) Type Rh positive 11/18/24 05:37 Antibody Screen Negative 11/18/24 05:37 Crossmatch See Detail 11/18/24 05:37 Vitals Last Vital Signs Temp 98.1 F 11/20/24 11:35 Pulse 102 H 11/20/24 11:35 Resp 16 11/20/24 11:35 BP 182/97 11/20/24 11:35 Pulse Ox 94 11/20/24 11:35 O2 Del Method Room Air 11/20/24 11:35 O2 Flow Rate 2 11/18/24 15:14 Discharge Plan Discharge Patient Disposition: Hospice - Home Condition: Stable Prescriptions: New polyethylene glycol 3350 [Miralax] 17 gram/dose powder 4 g PO DAILY Qty: 119 0RF morphine 15 mg tablet 15 mg PO BID PRN (Reason: pain) 7 Days Qty: 14 0RF fentanyl 12 mcg/hr patch 72 hour 1 patch transdermal Q72H Qty: 5 0RF Continued duloxetine 60 mg capsule,delayed release(DR/EC) 60 - 120 mg PO DAILY quetiapine 300 mg tablet extended release 24 hr 300 mg PO BEDTIME clonazepam 2 mg tablet 2 mg PO BID aspirin [Adult Aspirin Regimen] 81 mg tablet,delayed release (DR/EC) 81 mg PO DAILY Qty: 30 3RF prochlorperazine maleate [Compazine] 10 mg tablet 10 mg PO Q4H PRN (Reason: mild nausea) Qty: 30 3RF ondansetron HCl 4 mg tablet 4 mg PO Q6H PRN (Reason: nausea and vomiting) Qty: 30 3RF Changed valacyclovir 500 mg tablet 1,000 mg PO TID PRN (Reason: prn) 7 Days Qty: 60 5RF Rx Instructions: start treatment and take for 7 days when you see a shingles breakout Discontinued dexamethasone 4 mg tablet 40 mg PO .weekly Qty: 40 3RF Rx Instructions: Mondays lenalidomide 25 mg capsule 25 mg PO DAILY 21 Days Qty: 21 0RF Rx Instructions: swallow whole with glass of water; do not open, crush, chew , break, or dissolve [id number] lorazepam 1 mg tablet 0.5 - 1 mg PO Q6H PRN (Reason: severe nausea) Qty: 30 3RF fluconazole 100 mg tablet 100 mg PO DAILY Qty: 90 2RF oxycodone-acetaminophen [Percocet] 5-325 mg tablet 1 tab PO Q6H PRN (Reason: pain) 30 Days Qty: 60 0RF acyclovir 800 mg tablet 800 mg PO .5x daily 7 Days Qty: 35 0RF Rx Instructions: while awake; give 5 doses in 24 hours sulfamethoxazole-trimethoprim [Bactrim DS] 800-160 mg tablet See Rx Instructions .ROUTE .COMPLEX Rx Instructions: Take 1 tablet by mouth on Wednesday, Wednesday, and Wednesday. Discharge Orders: Discharge Order (Routine); Ordered 11/20/24 Ordered By: Philly Lechuga Referrals: Cl Martinez DO [Physician] - (APPOINTMENT AT [facility] [phone] We have notified your physician's clinic of the need for a follow-up appointment to be scheduled. If you have not heard from them within the next 2 business days, please call them directly. ) Discharge Diet: Usual diet Discharge Activity: Resume usual activity Patient Instructions: Fentanyl (Absorbed through the skin), Polyethylene Glycol 3350 (By mouth), Multiple Myeloma (GEN) Discharge Attestations Time Spent in Discharge Care*: greater than 30 min Quality Metrics Clinical Quality Measures [ No reported AMI, CVA or VTE this stay] Coding Level of Care Code 85044 Total time (in minutes) for Discharge: 60 Other Coding Information Focused coding review requested Diagnoses Acute non-recurrent maxillary sinusitis J01.00 Sinusitis location: maxillary Chronicity: acute Recurrence: non-recurrent Macrocytic anemia D53.9 Multiple myeloma without remission C90.00 Suspected COVID-19 virus infection Z20.822 Multifocal pneumonia J18.9 Goals of care, counseling/discussion Z71.89
== END 2024-11-20 16:02 | disposition hospice, home (50) | DRG 177 ==
LOC: ER 13:09 → MEDSURG 18:35
PROVIDERS: Internal Medicine; Admitting Provider Internal Medicine; Emergency Provider Emergency Medicine; Visit Provider Student in an Organized Health Care Education/Training Program
DX: U07.1 COVID-19 (principal); J12.82 Pneumonia due to coronavirus disease 2019; C90.00 Multiple myeloma not having achieved remission; J01.00 Acute maxillary sinusitis, unspecified; D50.9 Iron deficiency anemia, unspecified; B02.9 Zoster without complications; G89.3 Neoplasm related pain (acute) (chronic); Z79.82 Long term (current) use of aspirin; Z66 Do not resuscitate; Z79.52 Long term (current) use of systemic steroids
CPT/HCPCS: 36415; 36416; 36430; 36600; 70450; 71045; 71250; 80048; 80051; 80053; 80202; 81001; 82274; 82330; 82805; 82962; 83036; 83540; 83550; 83605; 83735; 84145; 84484; 85025; 86140; 86403; 86850; 86900; 86920; 87040; 87449; 87486; 87581; 87633; 93005; 94640; 94664; 96365; 96367; 96375; 97163; 99285; J0131; J0360; J1956; J2270; J2405; J2543; J2919; J3370; J7030; P9016

== ENCOUNTER 2025-05-30 15:46 | Observation (INO) | payer OTHER, SELFPAY ==
--- OUTSIDE RECORDS SUMMARY | 2024-11-22 08:30 | XMS_ITS ---
Author Organization [facility] Address [address] [place] [address] Care Team Providers Care Moss Gatherer Name Role Phone Mariela Madhu Unavailable [phone] PATY SANCHEZ Unavailable Unavailable REASON FOR VISIT Cardiac murmur, mitral valve regurgitation per Paty Sanchez- 10/30/24 Encounters Encounter Location Date Provider Diagnosis [facility] [address] [place] [address] 11/22/2024 Madhu Sierra Plan Of Treatment No Information Progress Notes * RINCON MARISSA LDOB:[birth year] (74 yo M)Acc No.[id number]:11/22/2024 Progress Notes Patient: MARISSA GARCIA Provider: Gt Sierra MD :1950 A ge:74 Y S ex:Male Date:11/22/2024 Address:[address] [place], [place] [id number] Subjective: * Chief Complaints: * C ardiac murmur, mitral valve regurgitation per Paty Sanchez- 10/30/24 * Electronic signature of Narciso Sierra MD on 06/01/2025 at 02:58 AM CDT Sign off status: Pending * Provider: Gt Sierra MD Date: 11/22/2024 Generated for Dorcas clemons/Jacob/Flo on: 06/01/2025 02:58 AM CDT
[2025-05-30 15:48] VITALS: BP 103/63; PULSE 102; RESP 14; TEMP 36.6; O2SAT 89
--- NOTE | 2025-05-30 15:51 | XRR_ITS ---
PROCEDURE INFORMATION: Exam: XR Chest Exam date and time: 05/30/2025 4:07 PM Age: 74 years old Clinical indication: Other: AMS TECHNIQUE: Imaging protocol: Radiologic exam of the chest. Views: 1 view. COMPARISON: CT chest con [id number] 11/17/2024 4:20 PM FINDINGS: Lungs: Unremarkable. No consolidation. Pleural spaces: Unremarkable. No pleural effusion. No pneumothorax. Heart/Mediastinum: Unremarkable. No cardiomegaly. Bones/joints: Right reverse shoulder arthroplasty. XR/XR chest 1V portable [id number] IMPRESSION: No acute pulmonary parenchymal or pleural space abnormality.
--- NOTE | 2025-05-30 15:51 | CTR_ITS ---
PROCEDURE INFORMATION: Exam: CT Head Without Contrast Exam date and time: 05/30/2025 4:04 PM Age: 74 years old Clinical indication: Altered mental status/memory loss; Confusion or disorientation; Additional info: AMS TECHNIQUE: Imaging protocol: Computed tomography of the head without contrast. Radiation optimization: All CT scans at this facility use at least one of these dose optimization techniques: automated exposure control; mA and/or kV adjustment per patient size (includes targeted exams where dose is matched to clinical indication); or iterative reconstruction. COMPARISON: CT head wo con* [id number] 11/18/2024 12:10 PM RADIATION DOSE METRICS: Total DLP (mGy-cm): 1149.28 FINDINGS: Brain: No hemorrhage. No mass effect. Patchy areas of periventricular and subcortical white matter hypoattenuation, likely the sequela of chronic microvascular ischemia. Cerebral ventricles: No ventriculomegaly. Paranasal sinuses: Visualized sinuses are unremarkable. No fluid levels. Mastoid air cells: Visualized mastoid air cells are well aerated. Bones: Unremarkable. No acute fracture. Soft tissues: Unremarkable. CT/CT head wo con* [id number] IMPRESSION: No acute intracranial hemorrhage.
--- NOTE | 2025-05-30 15:56 | ECG_ITS ---
Study[employer] Stickybits Test Date: 2025-05-30 Pat Name: Elfego Tolentino Department: Room: Gender: Male [employer] Operator: : 1950 Requested By: Juan Manuel Caba Order Number: [id number] MD: Faizan Pineda M.D. Measurements Intervals [place] Rate: 101 P: 69 MI: 170 QRS: 66 QRSD: 94 T: 69 QT: 326 QTc: 424 Interpretive Statements SINUS TACHYCARDIA NONSPECIFIC T-WAVE ABNORMALITY Compared to ECG 11/18/2024 11:54:58 T-wave abnormality now present Sinus rhythm no longer present ST (T wave) deviation no longer present Electronically Signed On 05-31-2025 10:23:50 CDT by Faizan Pineda M.D. [email or web address]
--- NOTE | 2025-05-30 16:01 | W.ED.AMS ---
HPI - Altered Mental Status General: Chief Complaint: Altered Mental Status Stated Complaint: AMS Time Seen by Provider: 05/30/25 15:48 Source: EMS Mode of arrival: EMS Limitations: altered mental status History of Present Illness: 74-year-old male who is here with EMS for altered mental status his last seen well on Wednesday does live home alone per EMS home health saw him on Wednesday and he was taking care of himself today he is quite altered he is able to tell me his name not really able answer any other questions at this time. No signs of injury at this time. No known fever Related Data Home Medications ?Medication ?Instructions ?Recorded ?Confirmed duloxetine 60 mg capsule,delayed 60 - 120 mg PO DAILY 09/19/24 05/30/25 release quetiapine 300 mg tablet,extended 300 mg PO BEDTIME 09/19/24 05/30/25 release 24 hr clonazepam 2 mg tablet 2 mg PO BID 10/30/24 05/30/25 docusate sodium 100 mg capsule 100 mg PO BID 05/30/25 05/30/25 fentanyl 25 mcg/hr transdermal 1 patch transdermal Q72H Pain 05/30/25 05/30/25 patch morphine 30 mg tablet,extended 30 mg PO BID PRN Pain 05/30/25 05/30/25 release polyethylene glycol 3350 17 4 g PO DAILY PRN Constipation 05/30/25 05/30/25 gram/dose oral powder (Miralax) spironolactone 50 mg tablet 50 mg PO DAILY edema 05/30/25 05/30/25 Previous Rx's ?Medication ?Instructions ?Recorded aspirin 81 mg tablet,delayed 81 mg PO DAILY #30 tabs 10/30/24 release (Adult Aspirin Regimen) ondansetron HCl 4 mg tablet 4 mg PO Q6H PRN nausea and 11/06/24 vomiting #30 tabs prochlorperazine maleate 10 mg 10 mg PO Q4H PRN mild nausea #30 11/06/24 tablet (Compazine) tabs valacyclovir 500 mg tablet 1,000 mg (2 x 500 mg) PO TID PRN 11/20/24 prn 7 days #60 tabs Allergies Allergy/AdvReac Type Severity Reaction Status Date / Time No Known Allergies Allergy Verified 11/04/24 15:14 Review of Systems General: Reports: ROS unobtainable due to mental status PFSH ED PFSH: Social History Smoking and tobacco/nicotine status: former use of tobacco/nicotine Alcohol intake: never Substance/Drug Use: never Physical Exam Const: COMMON NORMALS: negative for patient oriented x3 GENERAL APPEARANCE: ill appearing HENMT: COMMON NORMALS: normocephalic and atraumatic HEAD & SCALP: normocephalic and atraumatic Eye: COMMON NORMALS: Equal, round and reactive pupils present and EOMs intact bilaterally PUPIL: Yes Equal, round and reactive pupils present Neck/C-Spine: COMMON NORMALS: full ROM and supple Chest: COMMONS NORMALS: normal inspection of the chest and normal palpation of entire chest wall Resp: COMMON NORMALS: normal respiratory effort, No retractions, No use of accessory muscles and clear to auscultation bilaterally AUSCULTATION: clear to auscultation bilaterally Cardio: COMMON NORMALS: regular rate, regular rhythm and No murmurs present (Cardio) RATE: regular rate RHYTHM: regular rhythm GI: COMMON NORMALS: Normal to inspection, nondistended, normoactive bowel sounds present, Soft to palpation, non-tender and no masses PALPATION: Yes Soft to palpation Extremity: COMMON NORMALS: normal to inspection and full ROM Neuro: COMMON NORMALS: moves all extremities and no focal motor deficits; negative for patient oriented x3 Psych: COMMON NORMALS: negative for mental status grossly normal Skin: COMMON NORMALS: no rashes or lesions noted and no wounds GENERAL SKIN EXAM: no rashes or lesions noted Course Vital Signs: Vital signs: Vital Signs Temperature 97.8 F 05/30/25 15:48 Pulse Rate 102 H 05/30/25 15:48 Respiratory Rate 14 05/30/25 15:48 Blood Pressure 103/63 05/30/25 15:48 Pulse Oximetry 89 L 05/30/25 15:48 Oxygen Delivery Me thod Room Air 05/30/25 15:48 MDM - Altered Mental Status Medical Decision Making Patient presents here with altered mental status he is found to be anemic on admit patient did speak to his DPOA and he is on hospice can admit him at this time on comfort care. Medical Records I reviewed the patient's medical records. Lab Data I reviewed the patient's lab results. 05/30/25 15:57 05/30/25 15:57 Radiology Impressions Chest X-Ray 05/30/25 15:51 IMPRESSION: No acute pulmonary parenchymal or pleural space abnormality. Head CT 05/30/25 15:51 IMPRESSION: No acute intracranial hemorrhage. Laboratory Results WBC 0.94 10^3/uL (3.29-11.43) L* 05/30/25 15:57 RBC 1.29 10^6/uL (3.85-5.65) L 05/30/25 15:57 Hgb 4.50 g/dL (11.27-16.99) L* 05/30/25 15:57 Hct 14.2 % (37-53) L* 05/30/25 15:57 MCV 110.1 fl (82-101) H 05/30/25 15:57 MCH 34.9 pg (27-33) H 05/30/25 15:57 MCHC 31.7 g/dL (30-55) 05/30/25 15:57 RDW 19.0 % (12.1-15.1) H 05/30/25 15:57 Plt Count 83 10^3/cmm (157-399) L 05/30/25 15:57 MPV 10.6 fL (7.4-10.4) H 05/30/25 15:57 Neut % (Auto) 23.4 % 05/30/25 15:57 Lymph % (Auto) 70.2 % 05/30/25 15:57 [place] % (Auto) 6.4 % 05/30/25 15:57 Eos % (Auto) 0.0 % 05/30/25 15:57 Baso % (Auto) 0.0 % 05/30/25 15:57 Neut # (Auto) 0.22 10^3/uL (1.8-7.7) L* 05/30/25 15:57 Lymph # (Auto) 0.7 10^3/uL (0.8-4.8) L 05/30/25 15:57 [place] # (Auto) 0.1 10^3/uL (0.2-0.9) L 05/30/25 15:57 Eos # (Auto) 0.0 10^3/uL (0.0-0.8) 05/30/25 15:57 Baso # (Auto) 0.0 10^3/uL (0.0-0.1) 05/30/25 15:57 Nucleated RBC % (auto) 0 % 05/30/25 15:57 Nucleated RBCs # 0.0 /100WBC 05/30/25 15:57 PT 16.40 SECONDS (12.1-14.9) H 05/30/25 15:57 INR 1.24 (0.8-1.2) H 05/30/25 15:57 Specimen Type Arterial 05/30/25 16:27 Sample Site Radial, right 05/30/25 16:27 ABG pH 7.47 (7.35-7.45) H 05/30/25 16:27 ABG pCO2 32.5 mmHg (35-45) L 05/30/25 16:27 ABG pO2 67.2 mmHg (80.0-100.0) L 05/30/25 16:27 ABG PO2/FiO2 Ratio 320 05/30/25 16:27 ABG HCO3 23.5 mmol/L (22-26) 05/30/25 16:27 ABG O2 Saturation 94.9 05/30/25 16:27 ABG Base Excess -0.3 mmol/L (-2.0-2.0) 05/30/25 16:27 Nehemias Test Pos 05/30/25 16:27 A-a O2 Gradient 5.4 mmHg (5-10) 05/30/25 16:27 Hematocrit 15.6 % (42-52) L 05/30/25 16:27 Hgb O2 Saturation 91.8 % (95-100) L 05/30/25 16:27 Carboxyhemoglobin 1.8 %THgb (0.4-20.1) 05/30/25 16:27 Methemoglobin 1.4 % (0.4-1.5) 05/30/25 16:27 Total Hemoglobin 5.1 g/dL (14-18) L 05/30/25 16:27 Sodium 130.0 mmol/L (131-143) L 05/30/25 16:27 Potassium 4.1 mmol/L (3.5-5.0) 05/30/25 16:27 Glucose 121.0 mg/dL (70-115) H 05/30/25 16:27 Ionized Calcium 1.2 mmol/L (1.1-1.4) 05/30/25 16:27 O2 Delivery Device Room air 05/30/25 16:27 FiO2 21.0 % 05/30/25 16:27 Block Cableman ID Aris 05/30/25 16:27 Sodium 125 mmol/L (136-145) L 05/30/25 15:57 Potassium 3.9 mmol/L (3.5-5.1) 05/30/25 15:57 Chloride 93 mmol/L (98-107) L 05/30/25 15:57 Carbon Dioxide 22 mmol/L (22-29) 05/30/25 15:57 Anion Gap 13.9 (5-19) 05/30/25 15:57 BUN 27 mg/dL (8-23) H 05/30/25 15:57 Creatinine 0.9 mg/dL (0.7-1.2) 05/30/25 15:57 GFR Calculation Not Reportable 05/30/25 15:57 Glucose 112 mg/dL (65-115) 05/30/25 15:57 Calculated Osmolality 266 mOsm/kg (285-295) L 05/30/25 15:57 Lactic Acid 1.3 mmol/L (0.5-2.2) 05/30/25 15:57 Calcium 8.4 mg/dL (8.5-10.5) L 05/30/25 15:57 Magnesium 1.7 mg/dL (1.7-2.3) 05/30/25 15:57 Total Bilirubin 0.6 mg/dL (0.15-1.2) 05/30/25 15:57 AST 25 U/L (0-40) 05/30/25 15:57 ALT 13 U/L (0-41) 05/30/25 15:57 Alkaline Phosphatase 54 U/L (40-130) 05/30/25 15:57 Ammonia 16 umol/L (16-60) 05/30/25 15:57 Creatine Kinase 55 U/L (39-308) 05/30/25 15:57 Total Protein 10.7 g/dL (6.6-8.7) H 05/30/25 15:57 Albumin 3.1 g/dL (3.5-5.2) L 05/30/25 15:57 Globulin 7.6 g/dL (1.3-4.6) H 05/30/25 15:57 Lipase 17 U/L (13-60) 05/30/25 15:57 TSH 1.80 uIU/mL (0.27-4.20) 05/30/25 15:57 Urine Color Yellow (Yellow) 05/30/25 16:25 Urine Appearance Clear (CLEAR) 05/30/25 16:25 Urine pH 5.5 (5-7) 05/30/25 16:25 Ur Specific [place] 1.014 (1.005-1.030) 05/30/25 16:25 Urine Protein 1+ (Negative) A 05/30/25 16:25 Urine Glucose (UA) Negative (Normal) 05/30/25 16:25 Urine Ketones Negative (Negative) 05/30/25 16:25 Urine Blood Negative (Negative) 05/30/25 16:25 Urine Nitrate Negative (Negative) 05/30/25 16:25 Urine Bilirubin Negative (Negative) 05/30/25 16:25 Urine Urobilinogen 1.0 mg/dL (Negative) 05/30/25 16:25 Ur Leukocyte Esterase Negative (Negative) 05/30/25 16:25 Urine RBC 0-2 /hpf (0-2) 05/30/25 16:25 Urine WBC 0-5 /hpf (0-5) 05/30/25 16:25 Ur Squamous Epith Cells 0-5 /hpf (0-5) 05/30/25 16:25 Amorphous Sediment Not Reportable 05/30/25 16:25 Urine Bacteria None seen /hpf (NONE) 05/30/25 16:25 Hyaline Casts 31.84 /lpf 05/30/25 16:25 Fine Granular Casts 0-4 /lpf H 05/30/25 16:25 Blood Type A Positive 05/30/25 16:37 Rho(D) Type Rh positive 05/30/25 16:37 Antibody Screen Negative 05/30/25 16:37 Crossmatch See Detail 05/30/25 16:37 All radiology interpretation(s) finalized by discharge EKG Data EKG 1: I personally reviewed and interpreted this EKG as follows: EKG interpretation date: 05/30/25 EKG interpretation time: 15:56 Interpretation: sinus tach hr [address] or t wave abnormalities qrs 94 qtc 384 Discharge Plan Discharge Patient Disposition: Admitted As Inpatient Clinical Impression: Altered mental status, Multiple myeloma without remission Condition: Stable Coding Level of Care Code ED Environmental Health And Safety Leader for Clarisse Lucas
[2025-05-30 16:10] LABS: Mean Corpuscular HGB Conc 31.7 g/dL (30-55); Mean Corpuscular Hemoglobin 34.9 pg (27-33); Mean Corpuscular Volume 110.1 fl (82-101); Nucleated Red Blood Cells % 0 %; Platelet Count 83 10^3/cmm (157-399); Red Blood Count 1.29 10^6/uL (3.85-5.65); White Blood Count 0.94 10^3/uL (3.29-11.43)
[2025-05-30 16:31] LABS: INR 1.24 (0.8-1.2); Prothrombin Time 16.40 SECONDS (12.1-14.9)
[2025-05-30 16:35] LABS: Ammonia 16 umol/L (16-60)
[2025-05-30 16:37] LABS: Lactic Sepsis W/Reflex 1.3 mmol/L (0.5-2.2)
[2025-05-30 16:38] LABS: ABG PCO2 32.5 mmHg (35-45); ABG PH Result 7.47 (7.35-7.45); Alveolar-Arterial Oxygen Gradi 5.4 mmHg (5-10); Arterial Blood Gas Hematocrit 15.6 % (42-52); Blood Gas Allen Test Pos; Blood Gas Operator Identificat WALCI; Blood Gas Sample Site Radial, right; Blood Gas Sample Type Arterial; Carboxyhemoglobin 1.8 %THgb (0.4-20.1); Glucose Level-ABG 121.0 mg/dL (70-115); HCO3 ABG 23.5 mmol/L (22-26); Ionized Calcium Level - ABG 1.2 mmol/L (1.1-1.4); Methemoglobin 1.4 % (0.4-1.5); Oxygen Saturation ABG 94.9; PO2 ABG 67.2 mmHg (80.0-100.0); PO2 FiO2 Ratio Arterial Blood 320; Potassium Level - ABG 4.1 mmol/L (3.5-5.0); Sodium Level - ABG 130.0 mmol/L (131-143)
[2025-05-30 16:40] LABS: Glucose Urine UA Negative (Normal); Nitrate Urine Negative (Negative); Specific Gravity, Urine 1.014 (1.005-1.030)
--- NOTE | 2025-05-30 16:43 | PC.PHAR ---
ISAAC Villafana shows pt is now on Hospice and has home health care to check on him. Verified Fentanyl patch was increased to 25mcg/hr 05/21/25 and pt received Morphine er 30mg bid prn filled 05/21/25. 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 Unknown when pt last took any medications.
[2025-05-30 16:45] LABS: Add Urine Microscopic? YES
[2025-05-30 16:47] LABS: Alanine Aminotransferase 13 U/L (0-41); Albumin Level 3.1 g/dL (3.5-5.2); Alkaline Phosphatase 54 U/L (40-130); Anion Gap 13.9 (5-19); Aspartate Amino Transferase 25 U/L (0-40); Blood Urea Nitrogen 27 mg/dL (8-23); Calcium 8.4 mg/dL (8.5-10.5); Carbon Dioxide 22 mmol/L (22-29); Chloride 93 mmol/L (98-107); Creatinine Clr Calc Pharmacy 70.6058; Globulin 7.6 g/dL (1.3-4.6); Glucose 112 mg/dL (65-115); Lipase 17 U/L (13-60); Magnesium 1.7 mg/dL (1.7-2.3); Osmolality Calculated 266 mOsm/kg (285-295); Potassium 3.9 mmol/L (3.5-5.1); Sodium 125 mmol/L (136-145); Thyroid Stimulating Hormone 1.80 uIU/mL (0.27-4.20); Total Protein 10.7 g/dL (6.6-8.7)
[2025-05-30 16:51] LABS: Hematocrit 14.2 % (37-53); Hemoglobin 4.50 g/dL (11.27-16.99)
[2025-05-30 16:54] LABS: Slide Review Slide Review Perform
[2025-05-30 16:57] LABS: UA Slide Review UA Slide Review Perf
[2025-05-30 18:04] VITALS: BP 106/65; PULSE 92; RESP 16; O2SAT 96
--- NOTE | 2025-05-30 18:17 | PM.HP ---
Providers/Chief Complaint Chief Complaint: AMS History of Present Illness Elfego Tolentino is a 74 year old male With past medical history of multiple myeloma, chronic anemia, shingles severe nausea in the past who was sent home with hospice November 28, 2024 as per patient's wishes as he did not seek any further treatment for his multiple myeloma. At that visit he indicated that he wanted to be discharged home to live out his days per his wishes. He his only request at the time was pain management. He was excepted by [facility]. He was discharged with prescriptions for morphine and fentanyl patch which were helping him with his pain. For shingles he was given Valtrex for 7 days. Today patient presented back to the hospital after being sent in by his home health nurse states patient was in a lot of pain and he could not be taking care of at home anymore. He was seen in the ER. He was somewhat altered however aware of what was going on. He acknowledged that he had cancer and that he was in a lot of pain. He said to me please just take the pain away I want to be comfortable. I discussed with him if he wanted any further treatment for his cancer and offered chemotherapy to which he stated I never wanted that and I do not want it now. He made a comment that he is dying and he just wants the pain to go away. He denies a fever denies shortness of breath. His main complaint is pain at this time. He states the pain is all over his body. Patient appears to be somewhat confused however aware of what is going on unable to voice his patients. Patient is DPOA over the phone Ivett Ford was contacted. Who confirmed all of the above. He stated that the goal is to keep the patient comfortable at this time. He is not aware of the patient having any living family. Nursing staff also relayed to him that there will be no antibiotics or IV fluids given to which she was okay with. Patient also voiced to me that he does not want any treatment of any kind. I spoke with EMMA myself over the phone who confirmed that the goal is comfort measures at this point. He also stated that the patient has VA benefits and he would be okay with patient going to a nursing facility with hospice/comfort measures. Medications/Allergies Home Medications ?Medication ?Instructions ?Recorded ?Confirmed ?Last Taken ?Type duloxetine 60 mg capsule,delayed 60 - 120 mg PO DAILY 09/19/24 05/30/25 11/16/24 History release quetiapine 300 mg tablet,extended 300 mg PO BEDTIME 09/19/24 05/30/25 11/15/24 History release 24 hr aspirin 81 mg tablet,delayed 81 mg PO DAILY #30 tabs 10/30/24 05/30/25 11/16/24 Rx release (Adult Aspirin Regimen) clonazepam 2 mg tablet 2 mg PO BID 10/30/24 05/30/25 11/17/24 History ondansetron HCl 4 mg tablet 4 mg PO Q6H PRN nausea and 11/06/24 05/30/25 Unknown Rx vomiting #30 tabs prochlorperazine maleate 10 mg 10 mg PO Q4H PRN mild nausea #30 11/06/24 05/30/25 Unknown Rx tablet (Compazine) tabs valacyclovir 500 mg tablet 1,000 mg (2 x 500 mg) PO TID PRN 11/20/24 05/30/25 11/16/24 Rx prn 7 days #60 tabs docusate sodium 100 mg capsule 100 mg PO BID 05/30/25 05/30/25 Unknown History fentanyl 25 mcg/hr transdermal 1 patch transdermal Q72H Pain 05/30/25 05/30/25 Unknown History patch morphine 30 mg tablet,extended 30 mg PO BID PRN Pain 05/30/25 05/30/25 Unknown History release polyethylene glycol 3350 17 4 g PO DAILY PRN Constipation 05/30/25 05/30/25 Unknown History gram/dose oral powder (Miralax) spironolactone 50 mg tablet 50 mg PO DAILY edema 05/30/25 05/30/25 Unknown History Allergies Allergy/AdvReac Type Severity Reaction Status Date / Time No Known Allergies Allergy Verified 11/04/24 15:14 PFSH Acute PFSH: Social History Smoking and tobacco/nicotine status: former use of tobacco/nicotine Alcohol intake: never Substance/Drug Use: never Vitals/I&O/Wt Last Vital Signs Temp 97.8 F 05/30/25 15:48 Pulse 92 05/30/25 18:04 Resp 16 05/30/25 18:04 BP 106/65 05/30/25 18:04 Pulse Ox 96 05/30/25 18:04 O2 Del Method Room Air 05/30/25 15:48 05/30/25 05/30/25 05/30/25 06:59 14:59 22:59 Intake Total 1000 / 1000 Balance 1000 / 1000 Weight last 48 hrs Weight 65.771 kg Physical Exam Narrative: General: Alert oriented x2, patient seen laying in bed appearing quite uncomfortable at this time. He states he is in pain and states my penis is in agony. Earlier patient pulled out his Alarcon catheter. HEENT: Normocephalic, atraumatic, EOMI, breathing room air Cardio: S1-S2 appreciated, regular rate rhythm Respiratory: Clear to auscultation bilaterally diminished at bases. GI: Abdomen soft, mildly nontender nondistended bowel sounds + Extremities: No edema bilateral lower extremities however patient's tibia quite tender to touch. He complains of pain in his bones as I was examining him. Urinary Catheter Management: Alarcon: Cath Placed During This Visit: yes Reason for Continuing Indwelling Catheter: Hospice/Comfort/Palliative Care Urinary Catheter Date of Insertion: 05/30/25 Urinary Catheter Time of Insertion: 16:26 Data 05/30/25 15:57 05/30/25 15:57 A&P Assessment and plan 1. Goals of care, counseling/discussion: 2. Multiple myeloma without remission: 3. Macrocytic anemia: 4. Altered mental status: 5. Pancytopenia: 6. Hospice care: 7. Comfort measures only status: Plan: #Comfort measures status #Multiple myeloma, untreated #Hospice status at home #Severe neutropenia, pancytopenia ? Please see previous discharge summary for further details. ? Patient was on hospice at home however secondary to too much pain he was sent to the hospital. Patient has voiced that he does not want any kind of treatment at this time and would like to be kept comfortable. DPOA has stated the same thing. Patient's hospice nurse was also contacted who also confirmed the above. I discussed with DPAYAAN over the phone personally regarding goals of care. We will admit patient to the hospital under comfort measures status. He is severely pancytopenic. He would need immediate chemotherapy and transfer to higher level of care if treatment would be pursued at this time. I had talked to oncology over the phone regarding his case today. ? Per patient wishes we will admit under observation for comfort measures status only. ? Standard comfort care orders will be written. DNR/DNI/comfort measures only. PDMP PDMP Reviewed: Not Reviewed Attestations Medical Necessity Statement*: Comfort measures only. Diagnoses Goals of care, counseling/discussion Z71.89 Multiple myeloma without remission C90.00 Macrocytic anemia D53.9 Altered mental status R41.82 Pancytopenia D61.818 Hospice care Z51.5 Comfort measures only status Z51.5
[2025-05-30 19:19] VITALS: BP 108/68; PULSE 98; RESP 16; O2SAT 92
[2025-05-30 19:46] VITALS: RESP 17
[2025-05-30] MEDS: morphine 4 mg/mL SDV 1 mL IVP ×2 (19:46→20:40)
[2025-05-30] MEDS: LORazepam 1 MG/0.5 ML injection IVP (20:39)
[2025-05-30 20:40] VITALS: RESP 24
[2025-05-30 20:50] VITALS: BMI 19.3
[2025-05-31 01:00] VITALS: RESP 17
[2025-05-31] MEDS: morphine 4 mg/mL SDV 1 mL IVP ×3 (01:00→19:16)
[2025-05-31] MEDS: LORazepam 2 mg/mL oral liquid (mL) PO ×5 (01:00→22:56)
[2025-05-31] MEDS: morphine 10 mg/0.5 mL oral liq UD SUBLINGUAL ×3 (01:35→22:56)
--- NOTE | 2025-05-31 09:27 | PC.CHAP ---
Pastoral Care Encounter/Spiritual Assessment Type of Contact [] Declined weighter visit [] Patient/Family/Request visit [] Outpatient visit [] Follow-up visit [] Physician referral [] Code/Alert [] Routine visit [] Staff referral [] Actively dying [x] Patient sleeping [] Family support [] [] Out of room [] Palliative care [] [] Receiving care in room [] Pre-surgical visit [] Trauma [] Long length of stay [] ICU visit [] Other: Relational/Emotional Strength [] Patient feels connected with others/family/visitors/staff [] Distress [] Loneliness/isolation [] Abandonment Spirituality of Patient [] Person of Heidi [] Attends Religious of their Heidi [] Believes in Prayer [] Reads Bible or Bahai materials [] There are Spiritual issues to be addressed Senior Mortgage Underwriter Interventions [] Prayer [] Active listening [] Non-anxious presence [] Spiritual/emotional support [] Crisis/trauma care [] Spiritual counseling [] Bereavement support [] Provided bereavement packet [] Provided Bible/devotional materials [] Provided toy/stuffed animal, coloring book to patient or family member [] Provided Communion [] Anointing/Elizabeth [] Salvation [] Completed spiritual assessment [] Other: Impact on Illness or Injury [] Angry [] Fearful [] Anxious [] Often cries [] Exhaustion [] Unable to work [] Unable to attend religion [] Unable to walk/stand [] Unable to read [] Unable to drive [] Unable to eat/drink [] Unable to sleep [] Unable to be with family [] Patient intubated [] Other: Summary Time spent with patient
[2025-05-31 09:51] VITALS: BP 104/62; PULSE 101; RESP 18; TEMP 36.9; O2SAT 92
[2025-05-31 10:47] VITALS: RESP 16
--- NOTE | 2025-05-31 14:05 | P.PN_ITS ---
Subjective 2 Subjective: Seen this morning. Patient appears to be very comfortable at this time. He states his pain is better. Vitals/I&O/Wt Last Vital Signs Temp 98.5 F 05/31/25 09:51 Pulse 101 H 05/31/25 09:51 Resp 16 05/31/25 10:47 BP 104/62 05/31/25 09:51 Pulse Ox 92 05/31/25 09:51 O2 Del Method Nasal Cannula 05/31/25 09:51 O2 Flow Rate 1 05/31/25 08:00 05/30/25 05/31/25 05/31/25 22:59 06:59 14:59 Intake Total 1999 1220 / 1220 Output Total 1500 / 1500 900 / 900 Balance 1999 -1500 / 500 320 / 320 Weight last 48 hrs Weight 61.83 kg Weight 63.004 kg Weight 65.771 kg Physical Exam 2 Narrative: General: Alert oriented x2, appears comfortable at this time. HEENT: Normocephalic, atraumatic, EOMI, breathing room air Cardio: S1-S2 appreciated, regular rate rhythm Respiratory: Clear to auscultation bilaterally diminished at bases. GI: Abdomen soft, nontender Extremities: No edema Urinary Catheter Management: Alarcon: Cath Placed During This Visit: yes Reason for Continuing Indwelling Catheter: Hospice/Comfort/Palliative Care Urinary Catheter Date of Insertion: 05/30/25 Urinary Catheter Time of Insertion: 16:26 Data 05/30/25 15:57 05/30/25 15:57 A&P Assessment and plan 1. Goals of care, counseling/discussion: 2. Multiple myeloma without remission: 3. Macrocytic anemia: 4. Altered mental status: 5. Pancytopenia: 6. Hospice care: 7. Comfort measures only status: Plan: #Comfort measures status #Multiple myeloma, untreated #Hospice status at home #Severe neutropenia, pancytopenia ? Please see previous discharge summary for further details. ? Patient was on hospice at home however secondary to too much pain he was sent to the hospital. Patient has voiced that he does not want any kind of treatment at this time and would like to be kept comfortable. DPAYAAN has stated the same thing. Patient's hospice nurse was also contacted who also confirmed the above. I discussed with EMMA over the phone personally regarding goals of care. We will admit patient to the hospital under comfort measures status. He is severely pancytopenic. He would need immediate chemotherapy and transfer to higher level of care if treatment would be pursued at this time. I had talked to oncology over the phone regarding his case today. ? Per patient wishes we will admit under observation for comfort measures status only. ? Standard comfort care orders will be written. DNR/DNI/comfort measures only. 05/31/2025 Patient appears to be comfortable Continue comfort measures status. PDMP PDMP Reviewed: Not Reviewed Attestations 2 Medical Necessity Statement*: Comfort measures only. Diagnoses Goals of care, counseling/discussion Z71.89 Multiple myeloma without remission C90.00 Macrocytic anemia D53.9 Altered mental status R41.82 Pancytopenia D61.818 Hospice care Z51.5 Comfort measures only status Z51.5
[2025-05-31 19:16] VITALS: RESP 17
--- OUTSIDE RECORDS SUMMARY | 2025-06-01 02:59 | XMS_ITS | Patient Health Record ---
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) Referring Provider First Name PATY Referring Provider Last Name DANIEL Referring Provider Speciality [facility] Referred Organization [facility] Referred Provider Madhu Sierra Referred Address [address],[place],[address], Referred Provider Specialty Cardiology Referral Priority Routine Problems Problem Type SNOMED Code ICD Code Onset Dates Problem Status W/U Status Risk Notes Problem Mild mitral valve regurgitation (137775769) Mild mitral valve regurgitation (I34.0) Active confirmed Problem Mitral valve annular calcification (disorder) (668141427) Mitral annular calcification (I34.81) Active confirmed Plan Of Treatment No Information Insurance Providers Payer Name Payer Address Payer Phone Subscriber Number Group Number Insured Name Patient Relationship to Insured Coverage Start Date Coverage End Date [employer] [place] [employer] Replacement [address] [place] [address] [id number] MARISSA RINCON Self - patient is the insured
--- OUTSIDE RECORDS SUMMARY | 2025-06-01 02:59 | XMS_ITS | Clinical Summary ---
Author Organization [facility] / [facility] Address [address] [place] [address] Care Team Providers Care Director Of Parks And Recreation Name Role Phone Non-Staff, Physician Primary Care Provider Unava ilable Allergies No known active allergies Medications PAROXETINE HCL (PAXIL ORAL) Take 40 mg by mouth daily. Active clonazePAM (KLONOPIN) 2 mg Oral tablet Take 2 mg by mouth 2 times daily. Active traMADol (ULTRAM) 50 mg Oral tablet Take 100 mg by mouth every 6 hours as needed. Active QUEtiapine (SEROQUEL) 400 mg Oral tablet Take 200 mg by mouth daily at bedtime. 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 Gender Identity Not on file Sexual Orientation Not on file Occupation Industry Job Start Date Job End Date Not on file Not on file Not on file Not on file Last Filed Vital Signs Vital Sign Reading Time Taken Comments Blood Pressure 117/75 09/20/2012 11:04 AM REAL ESTATE OFFICE MANAGER Pulse - - Temperature - - Respiratory Rate - - Oxygen Saturation - - Inhaled Oxygen Concentration - - Weight 81.6 kg (180 lb) 11/24/2012 11:05 AM REAL ESTATE OFFICE MANAGER Height 182.9 cm (6') 11/24/2012 11:05 AM REAL ESTATE OFFICE MANAGER Body Mass Index 24.41 11/24/2012 11:05 AM REAL ESTATE OFFICE MANAGER Plan of Treatment Health Maintenance Due Date Last Done Comments DTAP/TDAP/TD VACCINES (1 - Tdap) 1967 PNEUMOCOCCAL VACCINE 50+ YEARS (1 of 1 - PCV) 10/26/19 98 ZOSTER VACCINE (1 of 2) 1998 RSV VACCINE (60+ or ) (1 - 1-dose 75+ series) 2023 INFLUENZA VACCINE (#1) 2025 Insurance [employer] GOLD PLUS [id number] HMO Member Subscriber Plan / Payer (Ef fective 2020-Present) Name:Elfego Tolentino Relation to Subscriber:Self Name:Elfego Tolentino Payer ID:[id number] (NAIC) Type:Medicare Managed Care Address: [address] Care Teams Director Of Parks And Recreation Relationship Specialty Start Date End Date Non-Staff, Physician NO ADDRESS ON FILE PCP - General 10/28/12
[2025-06-01 03:28] VITALS: RESP 16
[2025-06-01] MEDS: LORazepam 2 mg/mL oral liquid (mL) PO ×2 (03:28→08:08)
[2025-06-01] MEDS: morphine 4 mg/mL SDV 1 mL IVP ×2 (03:28→08:07)
[2025-06-01 08:07] VITALS: RESP 15
[2025-06-01 08:11] VITALS: BP 110/65; PULSE 99; RESP 19; TEMP 36.8; O2SAT 90
--- NOTE | 2025-06-01 09:24 | PM.DCS ---
Discharge Providers Date of Admission: 05/30/25 18:57 Date of Discharge: June 01, 2025 Attending Provider at Admission: Yesenia Vasquez MD Attending Provider at Discharge: Yesenia Vasquez MD Diagnoses at Discharge Discharge Diagnosis 1. Goals of care, counseling/discussion: 2. Multiple myeloma without remission: 3. Macrocytic anemia: 4. Altered mental status: 5. Pancytopenia: 6. Hospice care: 7. Comfort measures only status: Reason for Visit Reason for Visit: [facility] Hospital Course Hospital Course Elfego Tolentino is a 74 year old male With past medical history of multiple myeloma, chronic anemia, shingles severe nausea in the past who was sent home with hospice November 28, 2024 as per patient's wishes as he did not seek any further treatment for his multiple myeloma. At that visit he indicated that he wanted to be discharged home to live out his days per his wishes. He his only request at the time was pain management. He was excepted by [facility]. He was discharged with prescriptions for morphine and fentanyl patch which were helping him with his pain. For shingles he was given Valtrex for 7 days. Today patient presented back to the hospital after being sent in by his home health nurse states patient was in a lot of pain and he could not be taking care of at home anymore. He was seen in the ER. He was somewhat altered however aware of what was going on. He acknowledged that he had cancer and that he was in a lot of pain. He said to me please just take the pain away I want to be comfortable. I discussed with him if he wanted any further treatment for his cancer and offered chemotherapy to which he stated I never wanted that and I do not want it now. He made a comment that he is dying and he just wants the pain to go away. He denies a fever denies shortness of breath. His main complaint is pain at this time. He states the pain is all over his body. Patient appears to be somewhat confused however aware of what is going on unable to voice his patients. Patient is DPOA over the phone Ivett Ford was contacted. Who confirmed all of the above. He stated that the goal is to keep the patient comfortable at this time. He is not aware of the patient having any living family. Nursing staff also relayed to him that there will be no antibiotics or IV fluids given to which she was okay with. Patient also voiced to me that he does not want any treatment of any kind. I spoke with EMMA myself over the phone who confirmed that the goal is comfort measures at this point. He also stated that the patient has VA benefits and he would be okay with patient going to a nursing facility with hospice/comfort measures. Please see previous discharge summary for further details. ? Patient was on hospice at home however secondary to too much pain he was sent to the hospital. Patient has voiced that he does not want any kind of treatment at this time and would like to be kept comfortable. DPAYAAN has stated the same thing. Patient's hospice nurse was also contacted who also confirmed the above. I discussed with EMMA over the phone personally regarding goals of care. We will admit patient to the hospital under comfort measures status. He is severely pancytopenic. He would need immediate chemotherapy and transfer to higher level of care if treatment would be pursued at this time. I had talked to oncology over the phone regarding his case today. ? Per patient wishes we will admit under observation for comfort measures status only. ? Standard comfort care orders will be written. DNR/DNI/comfort measures only. Discharged to nursing facility with hospice Physical Exam Narrative: General: Alert oriented x2, appears comfortable at this time. HEENT: Normocephalic, atraumatic, EOMI, breathing room air Cardio: S1-S2 appreciated, regular rate rhythm Respiratory: Clear to auscultation bilaterally diminished at bases. GI: Abdomen soft, nontender Extremities: No edema Urinary Catheter Management: Alarcon: Cath Placed During This Visit: yes Reason for Continuing Indwelling Catheter: Hospice/Comfort/Palliative Care Urinary Catheter Date of Insertion: 05/30/25 Urinary Catheter Time of Insertion: 16:26 Discharge Data Studies Completed and Pending Completed Studies During Hospitalization Category Date Time Status CT head wo con* [id number] Stat Cat Scan 05/30/25 15:51 Completed XR chest 1V portable [id number] Stat Exams 05/30/25 15:51 Completed Pending at discharge Category Date Time Status SARS Covid-2 Antigen Stat Lab 06/01/25 09:15 Received Radiology Impressions Chest X-Ray 05/30/25 15:51 IMPRESSION: No acute pulmonary parenchymal or pleural space abnormality. Head CT 05/30/25 15:51 IMPRESSION: No acute intracranial hemorrhage. Laboratory Results WBC 0.94 10^3/uL (3.29-11.43) L* 05/30/25 15:57 RBC 1.29 10^6/uL (3.85-5.65) L 05/30/25 15:57 Hgb 4.50 g/dL (11.27-16.99) L* 05/30/25 15:57 Hct 14.2 % (37-53) L* 05/30/25 15:57 MCV 110.1 fl (82-101) H 05/30/25 15:57 MCH 34.9 pg (27-33) H 05/30/25 15:57 MCHC 31.7 g/dL (30-55) 05/30/25 15:57 RDW 19.0 % (12.1-15.1) H 05/30/25 15:57 Plt Count 83 10^3/cmm (157-399) L 05/30/25 15:57 MPV 10.6 fL (7.4-10.4) H 05/30/25 15:57 Neut % (Auto) 23.4 % 05/30/25 15:57 Lymph % (Auto) 70.2 % 05/30/25 15:57 Winkler % (Auto) 6.4 % 05/30/25 15:57 Eos % (Auto) 0.0 % 05/30/25 15:57 Baso % (Auto) 0.0 % 05/30/25 15:57 Neut # (Auto) 0.22 10^3/uL (1.8-7.7) L* 05/30/25 15:57 Lymph # (Auto) 0.7 10^3/uL (0.8-4.8) L 05/30/25 15:57 Winkler # (Auto) 0.1 10^3/uL (0.2-0.9) L 05/30/25 15:57 Eos # (Auto) 0.0 10^3/uL (0.0-0.8) 05/30/25 15:57 Baso # (Auto) 0.0 10^3/uL (0.0-0.1) 05/30/25 15:57 Nucleated RBC % (auto) 0 % 05/30/25 15:57 Nucleated RBCs # 0.0 /100WBC 05/30/25 15:57 PT 16.40 SECONDS (12.1-14.9) H 05/30/25 15:57 INR 1.24 (0.8-1.2) H 05/30/25 15:57 Specimen Type Arterial 05/30/25 16:27 Sample Site Radial, right 05/30/25 16:27 ABG pH 7.47 (7.35-7.45) H 05/30/25 16:27 ABG pCO2 32.5 mmHg (35-45) L 05/30/25 16:27 ABG pO2 67.2 mmHg (80.0-100.0) L 05/30/25 16:27 ABG PO2/FiO2 Ratio 320 05/30/25 16:27 ABG HCO3 23.5 mmol/L (22-26) 05/30/25 16:27 ABG O2 Saturation 94.9 05/30/25 16:27 ABG Base Excess -0.3 mmol/L (-2.0-2.0) 05/30/25 16:27 Nehemias Test Pos 05/30/25 16:27 A-a O2 Gradient 5.4 mmHg (5-10) 05/30/25 16:27 Hematocrit 15.6 % (42-52) L 05/30/25 16:27 Hgb O2 Saturation 91.8 % (95-100) L 05/30/25 16:27 Carboxyhemoglobin 1.8 %THgb (0.4-20.1) 05/30/25 16:27 Methemoglobin 1.4 % (0.4-1.5) 05/30/25 16:27 Total Hemoglobin 5.1 g/dL (14-18) L 05/30/25 16:27 Sodium 130.0 mmol/L (131-143) L 05/30/25 16:27 Potassium 4.1 mmol/L (3.5-5.0) 05/30/25 16:27 Glucose 121.0 mg/dL (70-115) H 05/30/25 16:27 Ionized Calcium 1.2 mmol/L (1.1-1.4) 05/30/25 16:27 O2 Delivery Device Room air 05/30/25 16:27 FiO2 21.0 % 05/30/25 16:27 Engineer Sergeant ID Wal[place] 05/30/25 16:27 Sodium 125 mmol/L (136-145) L 05/30/25 15:57 Potassium 3.9 mmol/L (3.5-5.1) 05/30/25 15:57 Chloride 93 mmol/L (98-107) L 05/30/25 15:57 Carbon Dioxide 22 mmol/L (22-29) 05/30/25 15:57 Anion Gap 13.9 (5-19) 05/30/25 15:57 BUN 27 mg/dL (8-23) H 05/30/25 15:57 Creatinine 0.9 mg/dL (0.7-1.2) 05/30/25 15:57 GFR Calculation Not Reportable 05/30/25 15:57 Glucose 112 mg/dL (65-115) 05/30/25 15:57 Calculated Osmolality 266 mOsm/kg (285-295) L 05/30/25 15:57 Lactic Acid 1.3 mmol/L (0.5-2.2) 05/30/25 15:57 Calcium 8.4 mg/dL (8.5-10.5) L 05/30/25 15:57 Magnesium 1.7 mg/dL (1.7-2.3) 05/30/25 15:57 Total Bilirubin 0.6 mg/dL (0.15-1.2) 05/30/25 15:57 AST 25 U/L (0-40) 05/30/25 15:57 ALT 13 U/L (0-41) 05/30/25 15:57 Alkaline Phosphatase 54 U/L (40-130) 05/30/25 15:57 Ammonia 16 umol/L (16-60) 05/30/25 15:57 Creatine Kinase 55 U/L (39-308) 05/30/25 15:57 Total Protein 10.7 g/dL (6.6-8.7) H 05/30/25 15:57 Albumin 3.1 g/dL (3.5-5.2) L 05/30/25 15:57 Globulin 7.6 g/dL (1.3-4.6) H 05/30/25 15:57 Lipase 17 U/L (13-60) 05/30/25 15:57 TSH 1.80 uIU/mL (0.27-4.20) 05/30/25 15:57 Urine Color Yellow (Yellow) 05/30/25 16:25 Urine Appearance Clear (CLEAR) 05/30/25 16:25 Urine pH 5.5 (5-7) 05/30/25 16:25 Ur Specific [place] 1.014 (1.005-1.030) 05/30/25 16:25 Urine Protein 1+ (Negative) A 05/30/25 16:25 Urine Glucose (UA) Negative (Normal) 05/30/25 16:25 Urine Ketones Negative (Negative) 05/30/25 16:25 Urine Blood Negative (Negative) 05/30/25 16:25 Urine Nitrate Negative (Negative) 05/30/25 16:25 Urine Bilirubin Negative (Negative) 05/30/25 16:25 Urine Urobilinogen 1.0 mg/dL (Negative) 05/30/25 16:25 Ur Leukocyte Esterase Negative (Negative) 05/30/25 16:25 Urine RBC 0-2 /hpf (0-2) 05/30/25 16:25 Urine WBC 0-5 /hpf (0-5) 05/30/25 16:25 Ur Squamous Epith Cells 0-5 /hpf (0-5) 05/30/25 16:25 Amorphous Sediment Not Reportable 05/30/25 16:25 Urine Bacteria None seen /hpf (NONE) 05/30/25 16:25 Hyaline Casts 31.84 /lpf 05/30/25 16:25 Fine Granular Casts 0-4 /lpf H 05/30/25 16:25 Blood Type A Positive 05/30/25 16:37 Rho(D) Type Rh positive 05/30/25 16:37 Antibody Screen Negative 05/30/25 16:37 Crossmatch See Detail 05/30/25 16:37 Vitals Last Vital Signs Temp 98.3 F 06/01/25 08:11 Pulse 99 06/01/25 08:11 Resp 19 H 06/01/25 08:11 BP 110/65 06/01/25 08:11 Pulse Ox 90 06/01/25 08:11 O2 Del Method Nasal Cannula 06/01/25 08:11 O2 Flow Rate 1 05/31/25 08:00 Discharge Plan Discharge Patient Disposition: Hospice - Medical Facility Condition: Stable Prescriptions: Discontinued duloxetine 60 mg capsule,delayed release(DR/EC) 60 - 120 mg PO DAILY quetiapine 300 mg tablet extended release 24 hr 300 mg PO BEDTIME clonazepam 2 mg tablet 2 mg PO BID aspirin [Adult Aspirin Regimen] 81 mg tablet,delayed release (DR/EC) 81 mg PO DAILY Qty: 30 3RF prochlorperazine maleate [Compazine] 10 mg tablet 10 mg PO Q4H PRN (Reason: mild nausea) Qty: 30 3RF ondansetron HCl 4 mg tablet 4 mg PO Q6H PRN (Reason: nausea and vomiting) Qty: 30 3RF valacyclovir 500 mg tablet 1,000 mg PO TID PRN (Reason: prn) 7 Days Qty: 60 5RF Rx Instructions: start treatment and take for 7 days when you see a shingles breakout morphine 30 mg tablet extended release 30 mg PO BID PRN (Reason: Pain) docusate sodium 100 mg capsule 100 mg PO BID fentanyl 25 mcg/hr patch 72 hour 1 patch transdermal Q72H spironolactone 50 mg tablet 50 mg PO DAILY polyethylene glycol 3350 [Miralax] 17 gram/dose powder 4 g PO DAILY PRN (Reason: Constipation) Discharge Order = DC NOW: Discharge Order (Routine); Ordered 06/01/25 Ordered By: Yesenia Vasquez Referrals: [facility] [Outside] - 1-3 days [facility] [Outside] Discharge Diet: Regular Discharge Activity: Resume usual activity Patient Instructions: Altered Mental Status (ED) Discharge Attestations Time Spent in Discharge Care*: greater than 30 min Quality Metrics Clinical Quality Measures [ No reported AMI, CVA or VTE this stay] Coding Level of Care Code Acute Code for Chg Fwd Diagnoses Goals of care, counseling/discussion Z71.89 Multiple myeloma without remission C90.00 Macrocytic anemia D53.9 Altered mental status R41.82 Pancytopenia D61.818 Hospice care Z51.5 Comfort measures only status Z51.5
[2025-06-01 10:09] LABS: SARS Covid-2 Antigen Negative (Negative)
[2025-06-01 11:32] VITALS: BP 110/65; PULSE 99; RESP 19; TEMP 36.8; O2SAT 90
== END 2025-06-01 11:34 | disposition hospice, inpatient (51) ==
LOC: ER 18:23 → MEDSURG 18:57
PROVIDERS: Admitting Provider Internal Medicine; Emergency Provider Emergency Medicine; Visit Provider Internal Medicine
DX: C90.00 Multiple myeloma not having achieved remission (principal); Z71.89 Other specified counseling; D53.9 Nutritional anemia, unspecified; R41.82 Altered mental status, unspecified; D61.818 Other pancytopenia; Z51.5 Encounter for palliative care; Z66 Do not resuscitate; Z79.82 Long term (current) use of aspirin; Z79.891 Long term (current) use of opiate analgesic; Z87.891 Personal history of nicotine dependence
CPT/HCPCS: 36415; 36600; 51702; 70450; 71045; 80051; 80053; 81001; 82140; 82330; 82550; 82805; 83605; 83690; 83735; 84443; 85025; 85610; 86850; 86900; 86920; 87426; 93005; 96374; 96375; 99285; G0378; J2060; J2270; J7030; J9999